=== PATIENT | female | born 1935 | race Caucasian/White ===

== ENCOUNTER 2018-03-09 11:45 | Emergency (ER) | payer OTHER ==
[2018-03-09] MEDS ORDERED: NITROGLYCERIN 0.4 MG/TAB SL ONE (13:15)
[2018-03-09] MEDS ORDERED: ASPIRIN 81 MG CHEWABLE TABLET ONE (13:15)
[2018-03-09 13:40] LABS: Potassium 4.7 mEq/L (3.6-5.0)
[2018-03-09 13:42] LABS: Absolute Monocytes 0.7 K/uL (0.1-1.3); Absolute Neutrophil 6.1 K/uL (1.8-8.0); Basophils % 0.4 % (0-1.3); Eosinophils % 2.1 % (0-4.4); Hematocrit 35.1 % (36.0-45.0); Lymphocytes % 45.8 % (15.3-44.8); MCH 28.9 pg (27.0-35.0); MCV 88.1 fL (80-100); Monocytes % 5.4 % (3.3-12.3); RBC Red Blood Cell Count 3.98 M/uL (3.86-4.86)
--- NOTE | 2018-03-09 13:45 | EKG ---
Test Date: 2018-03-09 Test Time: 12:12:15 [employer] Scorer: LEXUS MEASUREMENT RESULTS: Intervals: Rate: 59 [place]: 130 QRSD: 76 QT: 408 QTc: 403 [place]: P: -24 NJ: 130 QRS: 14 T: 57 INTERPRETIVE STATEMENTS: Sinus bradycardia Otherwise normal ECG Compared to ECG 09/11/2017 00:22:56 Sinus rhythm no longer present Electronically Signed On 03-09-18 13:44:58 CDT by Gaurang Sanchez
[2018-03-09 13:50] LABS: CKMB Creatine Kinase MB 1.3 ng/ml (0.3-4.0)
--- NOTE | 2018-03-09 14:31 | RAD REPORT ---
EXAM DESCRIPTION: RAD - Chest Single View - 03/09/2018 2:17 pm CLINICAL HISTORY: Chest pain, right shoulder pain COMPARISON: August 2017 TECHNIQUE: AP portable chest image was obtained 1401 hours . FINDINGS: No peripheral mass, consolidation or failure. Lung markings are mildly prominent but stabl e from the comparison. Heart and vasculature are normal. No measurable pleural effusion and no pneumo thorax. No gross bony abnormality seen. No acute aortic findings suspected. IMPRESSION: No acute cardiopulmonary process. No significant interval change.
[2018-03-09 15:01] LABS: Blood Morphology Comment NOT SEEN (NOT SEEN); Platelet Estimate ADEQ; Urine White Blood Cell Casts OK
--- NOTE | 2018-03-09 15:44 | ER ---
Nurse's Notes [facility] Name: Hari Hernandez Age: 82 yrs Sex: Female : 1935 Arrival Date: 03/09/2018 Time: 11:46 Bed 8 Private MD: Diagnosis: Chest pain, unspecified;Dehydration Presentation: 03/09 12:06 Presenting complaint: Patient states: "This morning I got a pain in my chest like I had lk1 been hit. I got some numbness in my right shoulder and down my arm, but that is gone now. I feel funny in my jaw like someone grabbed me and shook my head around. I have had a cough since yesterday.". Transition of care: patient was not received from another setting of care. Onset of symptoms was March 09, 2018 at 08:00. Care prior to arrival: None. 12:06 Method Of Arrival: Wheelchair lk1 12:06 Acuity: TOMMY 3 lk1 Triage Assessment: 12:08 General: Appears in no apparent distress. Behavior is calm, cooperative, appropriate lk1 for age. Pain: Complains of pain in mid-sternal area Pain radiates to jaw Pain currently is 4 out of 10 on a pain scale. Quality of pain is described as. Cardiovascular: Capillary refill is brisk Patient's skin is warm and dry. Historical: - Allergies: 12:08 PENICILLINS; lk1 12:08 mycins; lk1 - PMHx: 12:08 Colon Infection; Hypertension; UTI; lk1 - PSHx: 12:08 None; lk1 - Immunization history:: Adult Immunizations up to date. - Social history:: Smoking status: Patient/guardian denies using tobacco. - Family history:: not pertinent. - Hospitalizations: : No recent hospitalization is reported. Screenin:30 Abuse screen: Denies threats or abuse. Denies injuries from another. Nutritional sv screening: No deficits noted. Tuberculosis screening: No symptoms or risk factors identified. Fall Risk None identified. Assessment: 12:30 Also complains of no other symptoms. General: Appears in no apparent distress. sv comfortable, well developed, Behavior is calm, cooperative, appropriate for age. Pain: Complains of pain in anterior aspect of right upper chest Pain currently is 4 out of 10 on a pain scale. Quality of pain is described as sharp, Pain began suddenly, Is continuous. Neuro: Level of Consciousness is awake, alert, obeys commands, Oriented to person, place, time, situation, Pt has short term memory issues. Moves all extremities. Full function. Cardiovascular: Heart tones S1 S2 present Patient's skin is warm and dry. Pulses are 2+ in right radial artery and left radial artery Rhythm is sinus bradycardia. Respiratory: Respiratory effort is even, unlabored, Respiratory pattern is regular, symmetrical. GI: Abdomen is obese, Stools are reported to be normal. Derm: Skin is pink, warm \\T\\ dry. 13:22 Reassessment: Patient appears in no apparent distress at this time. No changes from sv previously documented assessment. Patient and/or family updated on plan of care and expected duration. Pain level reassessed. Patient is alert, oriented x 3, equal unlabored respirations, skin warm/dry/pink. 16:07 Reassessment: Patient appears in no apparent distress at this time. No changes from sv previously documented assessment. Patient and/or family updated on plan of care and expected duration. Pain level reassessed. Patient is alert, oriented x 3, equal unlabored respirations, skin warm/dry/pink. Vital Signs: 12:09 BP 213 / 75; Pulse 62; Resp 16; Temp 97.8(TE); Pulse Ox 96% on R/A; Weight 90.72 kg lk1 (R); Height 5 ft. 4 in. (162.56 cm) (R); Pain 4/10; 12:42 BP 184 / 75; Pulse 57 MON; Resp 14; Pulse Ox 97% on R/A; sv 13:21 BP 192 / 79; Pulse 62 MON; Resp 15; Pulse Ox 97% on R/A; sv 13:39 BP 164 / 94; Pulse 56; Resp 18; Pulse Ox 98% on 2 lpm NC; jb1 14:15 BP 149 / 61; Pulse 58 MON; Resp 13; Pulse Ox 100% on 2 lpm NC; sv 14:50 BP 143 / 72; Pulse 57; Resp 12; Pulse Ox 100% on 2 lpm NC; sv 15:44 BP 199 / 71; Pulse 62; Resp 16; Pulse Ox 99% on 2 lpm NC; jb1 12:09 Body Mass Index 34.33 (90.72 kg, 162.56 cm) lk 12:42 Sinus bradycardia sv 13:21 Sinus Rhythm sv 14:15 Sinus bradycardia sv ED Course: 11:46 Patient arrived in ED. as 12:08 Triage completed. lk1 12:10 Arm band placed on right wrist. lk1 12:18 Kaci Posadas RN is Primary Nurse. sv 12:30 Patient has correct armband on for positive identification. Placed in gown. Bed in low sv position. Call light in reach. Side rails up X 1. Adult w/ patient. secured entrance monitor on. Pulse ox on. NIBP on. Door closed. Head of bed elevated. 12:30 Patient maintains SpO2 saturation greater than 95% on room air. sv 12:41 Alonzo Landry MD is Attending Physician. rn 12:42 ED physician to see patient. sv 13:00 EKG done, by processing tech. reviewed by Alonzo Landry MD. vh 14:15 XRAY Chest (1 view) In Process Unspecified. EDMS 14:20 X-ray completed. Portable x-ray completed in exam room. Patient tolerated procedure jr1 well. 16:07 No provider procedures requiring assistance completed. IV discontinued, intact, sv bleeding controlled, No redness/swelling at site. Pressure dressing applied. Administered Medications: 13:21 Drug: Aspirin Chewable Tablet 324 mg Route: PO; sv 14:15 Follow up: Response: No adverse reaction sv 13:21 Drug: Nitroglycerin 0.4 mg Route: Sublingual; sv 14:15 Follow up: Response: No adverse reaction sv Outcome: 15:44 Discharge ordered by MD. rn 16:08 Discharged to home via wheelchair, with family. sv 16:08 Condition: stable 16:08 Discharge instructions given to patient, family, Instructed on discharge instructions, follow up and referral plans. Demonstrated understanding of instructions, follow-up care. 16:09 Patient left the ED. sv Signatures: Dispatcher [employer] EDMS Chang Costello jb1 Kaci Posadas, Xiao Holguin RN jr1 Berta Galaviz Roman, MD MD rn Harrell, Venessa Shannan Henry, RN RN rj1
--- NOTE | 2018-03-09 15:44 | EDPHYS ---
Physician Documentation [facility] Name: Hari Hernandez Age: 82 yrs Sex: Female : 1935 Arrival Date: 03/09/2018 Time: 11:46 Bed 8 Private MD: ED Physician Alonzo Landry HPI: 03/09 14:08 This 82 yrs old Female presents to ER via Wheelchair with complaints of Chest rn Tightness, Dizziness, Numbness. 14:08 The patient or guardian reports chest pain that is located primarily in the substernal rn area. Onset: acutely. The pain radiates to the right arm, the right shoulder, Associated signs and symptoms: Pertinent negatives: abdominal pain, cough, diaphoresis, lower extremity pain, lower extremity swelling, lightheadedness, nausea, near syncope, palpitations, recent travel, shortness of breath, syncope, vomiting. The chest pain is described as a heaviness. Duration: The patient or guardian reports a single episode, that is still ongoing. Severity of pain: At its worst the pain was moderate in the emergency department the pain has improved. The patient has not experienced similar symptoms in the past. Was at physical therapy, started to have chest pressure/heaviness, radiates to right shoulder and right jaw, no syncope, no hx of VT. Sent here by her physical therapist and nurse. . Historical: - Allergies: 12:08 PENICILLINS; lk1 12:08 mycins; lk1 - PMHx: 12:08 Colon Infection; Hypertension; UTI; lk1 - PSHx: 12:08 None; lk1 - Immunization history:: Adult Immunizations up to date. - Social history:: Smoking status: Patient/guardian denies using tobacco. - Family history:: not pertinent. - Hospitalizations: : No recent hospitalization is reported. ROS: 14:08 Constitutional: Negative for fever, chills, and weight loss, Eyes: Negative for injury, rn pain, redness, and discharge, Neck: Negative for injury, pain, and swelling, Cardiovascular: Negative for palpitations, and edema, Respiratory: Negative for shortness of breath, cough, wheezing, and pleuritic chest pain, Abdomen/GI: Negative for abdominal pain, vomiting, diarrhea, and constipation, Back: Negative for injury and pain, MS/Extremity: Negative for injury and deformity, Skin: Negative for injury, rash, and discoloration, Neuro: Negative for headache, weakness, and seizure. Exam: 14:08 Constitutional: This is a well developed, well nourished patient who is awake, alert, rn and in no acute distress. Head/Face: Normocephalic, atraumatic. Eyes: Pupils equal round and reactive to light, extra-ocular motions intact. Lids and lashes normal. Conjunctiva and sclera are non-icteric and not injected. Cornea within normal limits. Periorbital areas with no swelling, redness, or edema. Neck: Trachea midline, no thyromegaly or masses palpated, and no cervical lymphadenopathy. Supple, full range of motion without nuchal rigidity, or vertebral point tenderness. No Meningismus. Cardiovascular: Regular rate and rhythm with a normal S1 and S2. No gallops, murmurs, or rubs. Normal PMI, no JVD. No pulse deficits. Respiratory: Lungs have equal breath sounds bilaterally, clear to auscultation and percussion. No rales, rhonchi or wheezes noted. No increased work of breathing, no retractions or nasal flaring. Abdomen/GI: Soft, non-tender, with normal bowel sounds. No distension or tympany. No guarding or rebound. No evidence of tenderness throughout. MS/ Extremity: Pulses equal, no cyanosis. Neurovascular intact. Full, normal range of motion. Equal circumference. Neuro: Awake and alert, GCS 15, oriented to person, place, and situation. Cranial nerves II-XII grossly intact. Motor strength 5/5 in all extremities. Sensory grossly intact. Vital Signs: 12:09 BP 213 / 75; Pulse 62; Resp 16; Temp 97.8(TE); Pulse Ox 96% on R/A; Weight 90.72 kg lk1 (R); Height 5 ft. 4 in. (162.56 cm) (R); Pain 4/10; 12:42 BP 184 / 75; Pulse 57 MON; Resp 14; Pulse Ox 97% on R/A; sv 13:21 BP 192 / 79; Pulse 62 MON; Resp 15; Pulse Ox 97% on R/A; sv 13:39 BP 164 / 94; Pulse 56; Resp 18; Pulse Ox 98% on 2 lpm NC; jb1 14:15 BP 149 / 61; Pulse 58 MON; Resp 13; Pulse Ox 100% on 2 lpm NC; sv 14:50 BP 143 / 72; Pulse 57; Resp 12; Pulse Ox 100% on 2 lpm NC; sv 15:44 BP 199 / 71; Pulse 62; Resp 16; Pulse Ox 99% on 2 lpm NC; jb1 12:09 Body Mass Index 34.33 (90.72 kg, 162.56 cm) lk1 12:42 Sinus bradycardia sv 13:21 Sinus Rhythm sv 14:15 Sinus bradycardia sv MDM: 12:41 Patient medically screened. rn 15:39 Differential diagnosis: acute myocardial infarction, acute pericarditis, anxiety, rn coronary artery disease chest wall pain, costochondritis, esophagitis, gastritis, gastroesophageal reflux disease (GERD), pleurisy, pneumonia, pneumothorax, stable angina. The patient was given aspirin in the Emergency Department. Data reviewed: vital signs, nurses notes, lab test result(s), EKG, radiologic studies, plain films, and as a result, I will admit patient. Counseling: I had a detailed discussion with the patient and/or guardian regarding: the historical points, exam findings, and any diagnostic results supporting the discharge/admit diagnosis, lab results, radiology results, the need for outpatient follow up, to return to the emergency department if symptoms worsen or persist or if there are any questions or concerns that arise at home. Refusal of service: The patient/guardian displays adequate decision making capability and despite a detailed discussion of alternatives, benefits, risks, and consequences refuses: Admission to the hospital for further work-up and treatment. Special discussion:. ED course: Offered observation to hospital for cardiac w/u, son and patient refuse admission, son states that doesn't even want her to take BP meds so would like to take her home, risks explained, state they are comfortable with that, states chest pain free, states hungry, son blaming this on acid reflux, which may be the case but not sure otherwise. . 03/09 12:49 Order name: Basic Metabolic Panel; Complete Time: 14:05 rn 03/09 12:49 Order name: CBC with Diff; Complete Time: 15:02 rn 03/09 12:49 Order name: Ckmb; Complete Time: 14: rn 03/09 12:49 Order name: CPK; Complete Time: 14: rn 03/09 12:49 Order name: Troponin (emerg Dept Use Only); Complete Time: 14:05 rn 03/09 13:48 Order name: CBC Smear Scan; Complete Time: 15:02 EDID 03/09 12:42 Order name: EKG; Complete Time: 12:42 sv 03/09 12:42 Order name: EKG - Nurse/Tech; Complete Time: 12:42 sv 03/09 12:49 Order name: XRAY Chest (1 view); Complete Time: 14:32 rn 03/09 12:49 Order name: Cardiac monitoring; Complete Time: 13:08 rn 03/09 12:49 Order name: IV Saline Lock; Complete Time: 13:08 rn 03/09 12:49 Order name: Labs collected and sent; Complete Time: 13:08 rn 03/09 12:49 Order name: O2 Per Protocol; Complete Time: 13:08 rn 03/09 12:49 Order name: O2 Sat Monitoring; Complete Time: 13:08 rn Administered Medications: 13:21 Drug: Aspirin Chewable Tablet 324 mg Route: PO; sv 14:15 Follow up: Response: No adverse reaction sv 13:21 Drug: Nitroglycerin 0.4 mg Route: Sublingual; sv 14:15 Follow up: Response: No adverse reaction sv Disposition: 03/09/18 15:44 Discharged to Home. Impression: Chest pain, unspecified, Dehydration. - Condition is Stable. - Discharge Instructions: Nonspecific Chest Pain, Dehydration, Adult. - Medication Reconciliation Form, Thank You Letter, Antibiotic Education, Prescription Opioid Use form. - Follow up: Private Physician; When: As needed; Reason: Recheck today's complaints, Re-evaluation by your physician. - Problem is new. - Symptoms have improved. Signatures: Dispatcher [employer] Kaci Esquivel, RN RN Alonzo Perales MD MD rn Kluge, Leah, RN RN lk1
== END 2018-03-09 16:09 | disposition home or self-care (01) ==
LOC: ER 11:45
DX: E86.0 Dehydration (principal); I10 Essential (primary) hypertension; Z88.0 Allergy status to penicillin; Z88.3 Allergy status to other anti-infective agents
CPT/HCPCS: 36415; 71045; 80048; 82550; 82553; 84484; 85025; 93005; 99285

== ENCOUNTER 2019-06-01 19:54 | Emergency (ER) | payer OTHER ==
[2019-06-01 20:36] LABS: Absolute Lymphocytes (CBC) 9.3 K/uL (0.7-4.9); Basophils % 0.3 % (0-1.3); Hematocrit 35.2 % (36.0-45.0); Lymphocytes % 51.1 % (15.3-44.8); MPV 10.1 fL (7.6-11.3); Monocytes % 3.8 % (3.3-12.3); RBC Red Blood Cell Count 4.13 M/uL (3.86-4.86)
[2019-06-01] MEDS ORDERED: NA CHLORIDE 0.9% 500 ML ONE (20:39)
--- NOTE | 2019-06-01 20:49 | RAD REPORT ---
EXAM DESCRIPTION: CT - Head Brain Wo Cont - 06/01/2019 8:32 pm CLINICAL HISTORY: Dizziness, syncope COMPARISON: None. TECHNIQUE: Axial 5 mm thick images of the head were obtained without IV contrast. All CT scans are performed using dose optimization technique as appropriate and may include automated exposure control or mA/KV adjustment according to patient size. FINDINGS: No intracranial hemorrhage, mass, edema or shift of mid-line structures. No acute infarcti on changes seen. Mild atrophy and moderate chronic ischemic changes are present. Ventricles are in pr oportion to volume loss. Arterial and physiologic calcifications are present. Mastoid air cells and visualized portions of the paranasal sinuses are clear. No acute bony findings. IMPRESSION: No hemorrhage or other acute intracranial finding. Mild atrophy and moderate chronic ischemic changes are present.
--- NOTE | 2019-06-01 20:50 | RAD REPORT ---
EXAM DESCRIPTION: RAD - Chest Single View - 06/01/2019 8:36 pm CLINICAL HISTORY: Dyspnea, chest pain, shortness of breath COMPARISON: January 2018 TECHNIQUE: AP portable chest image was obtained 2021 . FINDINGS: Lung volumes are low. No focal lung parenchymal process. No failure or volume overload. He art and vasculature are normal. No measurable pleural effusion and no pneumothorax. No acute bony abn ormality seen. No acute aortic findings suspected. IMPRESSION: No acute cardiopulmonary process. No suspicious change from comparison.
[2019-06-01 21:00] LABS: BUN Blood Urea Nitrogen 19 mg/dL (7-18); Bicarbonate 22 mmol/L (21-32); Glucose Level 151 mg/dL (74-106); NT PRO-BNP 250 pg/mL (<450); Sodium Level 141 mmol/L (136-145); Troponin (Emerg Dept Use Only) < 0.02 ng/mL (0.0-0.045)
[2019-06-01 21:42] LABS: Urine Blood NEGATIVE (NEG); Urine Glucose NEGATIVE (NEG); Urine Protein 1+ (NEG); Urine pH 5.5 (5.0-7.0)
[2019-06-01 21:43] LABS: Blood Morphology Comment NOT SEEN (NOT SEEN); Platelet Estimate ADEQ; Urine White Blood Cell Casts OK
[2019-06-01 22:10] LABS: Urine Bacteria 20-50 /HPF (<20); Urine Culture Reflex Order REFLEXED; Urine RBC <5 /HPF (NONE SEEN)
--- NOTE | 2019-06-01 22:29 | EDPHYS ---
Physician Documentation [facility] Name: Hari Hernandez Age: 84 yrs Sex: Female : 1935 Arrival Date: 06/01/2019 Time: 20:01 Bed 4 Private MD: ED Physician Alonzo Landry HPI: 06/01 20:20 This 84 yrs old Female presents to ER via EMS with complaints of sob, chest rn pain. 20:20 The patient has shortness of breath at rest. Onset: The symptoms/episode began/occurred rn just prior to arrival. Duration: The symptoms are continuous. The patient's shortness of breath is aggravated by nothing, is alleviated by nothing. Severity of symptoms: At their worst the symptoms were moderate in the emergency department the symptoms have improved. The patient has experienced similar episodes in the past. Reports sob, began at rest while playing dominos, felt fine prior, son reports episodes of anxiety but patient reports feels a little different. No cough. Reports mild chest discomfort. No abd pain/vomiting/diarrhea. Reports assoc dizziness but son states able to walk with her walker. . 20:20 Patient reports improvement without any intervention.. rn Historical: - Allergies: 20:12 "unknown mycin"; fc 20:12 mycins; fc 20:12 PENICILLINS; fc 20:12 Tetanus Vaccines \\T\\ Toxoid; fc - Home Meds: 20:12 Symbicort 160-4.5 mcg/actuation inhalation HFAA 2 puffs 2 times per day [Active]; fc omeprazole 40 mg Oral cpDR 1 cap once daily [Active]; sertraline 50 mg oral tab 1 tab once daily [Active]; amlodipine 5 mg tab 1 tab once daily [Active]; - PMHx: 20:12 Colon Infection; UTI; Hypertension; Bronchitis; GERD; Depression; fc - PSHx: 20:12 Cholecystectomy; Appendectomy; Knee surgery; hip surg; Hysterectomy; abscess; fc - Immunization history:: Last tetanus immunization: unknown. - Social history:: Smoking status: Patient/guardian denies using tobacco, Patient/guardian denies using alcohol, street drugs. - Ebola Screening: : Patient negative for fever greater than or equal to 101.5 degrees Fahrenheit, and additional compatible Ebola Virus Disease symptoms Patient denies exposure to infectious person Patient denies travel to an Ebola-affected area in the 21 days before illness onset. - Family history:: not pertinent. - Hospitalizations: : No recent hospitalization is reported. ROS: 20:20 Constitutional: Negative for fever, chills, and weight loss, Eyes: Negative for injury, rn pain, redness, and discharge, Neck: Negative for injury, pain, and swelling, Cardiovascular: Negative for palpitations, and edema, Respiratory: Negative for cough, wheezing, and pleuritic chest pain, Abdomen/GI: Negative for abdominal pain, nausea, vomiting, diarrhea, and constipation, MS/Extremity: Negative for injury and deformity, Skin: Negative for injury, rash, and discoloration, Neuro: Negative for headache, numbness, tingling, and seizure. Exam: 20:20 Constitutional: This is a well developed, well nourished patient who is awake, alert, rn and in no acute distress. Head/Face: Normocephalic, atraumatic. Eyes: Pupils equal round and reactive to light, extra-ocular motions intact. Lids and lashes normal. Conjunctiva and sclera are non-icteric and not injected. Cornea within normal limits. Periorbital areas with no swelling, redness, or edema. ENT: MMM Cardiovascular: Regular rate and rhythm. No pulse deficits. Respiratory: Lungs have equal breath sounds bilaterally, clear to auscultation. No increased work of breathing, no retractions or nasal flaring. Abdomen/GI: soft, non-tender MS/ Extremity: Pulses equal, no cyanosis. Neurovascular intact. ROM at baseline (chronic RLE issues after hip replacement) Neuro: Awake and alert, GCS 15, oriented to person, place, time, and situation. Cranial nerves II-XII grossly intact. Motor strength 5/5 in all extremities. Sensory grossly intact. Vital Signs: 19:55 BP 176 / 65; Pulse 90; Resp 16; Temp 98.6(O); Pulse Ox 97% on R/A; Weight 90.72 kg (R); fc Height 5 ft. 4 in. (162.56 cm) (R); Pain 4/10; 21:35 BP 175 / 72; Pulse 71; Resp 20; Pulse Ox 96% on R/A; tl2 22:45 BP 172 / 76; Pulse 76; Resp 18; Temp 98.6; Pulse Ox 97% on R/A; tl2 19:55 Body Mass Index 34.33 (90.72 kg, 162.56 cm) MDM: 20:07 Patient medically screened. rn 21:35 ED course: Pt back to baseline. Denies sob. Son reports she is constantly sob, with rn minimal exertion, has been attributed in past to out of shape. 18K WBC, predominantly lymphs, afebrile, clear cxr, will send urine for micro, no abd tenderness or complaints on reeval. . 22:27 Differential diagnosis: Anemia Myocardial Infarction pneumonia, Pneumothorax rn Psychogenic pulmonary edema. Data reviewed: vital signs, nurses notes, lab test result(s), radiologic studies, CT scan, plain films, and as a result, I will discharge patient. Counseling: I had a detailed discussion with the patient and/or guardian regarding: the historical points, exam findings, and any diagnostic results supporting the discharge/admit diagnosis, lab results, radiology results, the need for outpatient follow up, to return to the emergency department if symptoms worsen or persist or if there are any questions or concerns that arise at home. Response to treatment: the patient's symptoms have resolved after treatment, the patient's condition has returned to base line, and as a result, I will discharge patient. 22:27 ED course: Questionable UTI, 18K WBC, dizziness and no other source, will treat and rn given return precautions, patient and son requesting to leave soon.. 06/01 20:17 Order name: CBC with Diff; Complete Time: 22:26 rn 06/01 20:17 Order name: Basic Metabolic Panel; Complete Time: 21:12 rn 06/01 20:17 Order name: PROBNP; Complete Time: 21:12 rn 06/01 20:17 Order name: Troponin (emerg Dept Use Only); Complete Time: 21:12 rn 06/01 21:29 Order name: Urine Microscopic Only; Complete Time: 22:26 fc 06/01 21:36 Order name: Urine Dipstick--Ancillary (enter results); Complete Time: 22:26 mw2 06/01 20:17 Order name: IV Start; Complete Time: 20:20 rn 06/01 20:17 Order name: XRAY Chest (1 view); Complete Time: 20:54 rn 06/01 20:17 Order name: CT Head Brain wo Cont; Complete Time: 20:54 rn 06/01 20:17 Order name: Urine Dipstick-Ancillary (obtain specimen); Complete Time: 21:36 rn 06/01 21:44 Order name: CBC Smear Scan; Complete Time: 22:26 EDAZ 06/01 22:12 Order name: Urine Culture EDAZ Administered Medications: 20:27 Drug: NS 0.9% 500 ml Route: IV; Rate: bolus; Site: left antecubital; 22:47 Follow up: IV Status: Completed infusion; IV Intake: 500ml tl2 Disposition: 06/01/19 22:28 Discharged to Home. Impression: Dehydration, Dizziness and giddiness, Dyspnea, unspecified, Urinary tract infection, site not specified. - Condition is Stable. - Discharge Instructions: Dehydration, Adult, Dizziness, Shortness of Breath, Urinary Tract Infection, Adult. - Prescriptions for Macrobid 100 mg Oral Capsule - take 1 capsule by ORAL route every 12 hours for 7 days; 14 capsule. - Medication Reconciliation Form, Thank You Letter, Antibiotic Education, Prescription Opioid Use form. - Follow up: Private Physician; When: As needed; Reason: Recheck today's complaints, Re-evaluation by your physician. - Problem is new. - Symptoms have improved. Signatures: Dispatcher [employer] [facility] Sydni Schreiber RN RN fc Ballard, Brenda, RN RN bb Nieto, Roman, MD MD rn Knox, Taylor, RN RN tl2 Corrections: (The following items were deleted from the chart) 22:47 22:28 06/01/2019 22:28 Discharged to Home. Impression: Dehydration; Dizziness and tl2 giddiness; Dyspnea, unspecified; Urinary tract infection, site not specified. Condition is Stable. Forms are Medication Reconciliation Form, Thank You Letter, Antibiotic Education, Prescription Opioid Use. Follow up: Private Physician; When: As needed; Reason: Recheck today's complaints, Re-evaluation by your physician. Problem is new. Symptoms have improved. rn
--- NOTE | 2019-06-01 22:29 | ER ---
Nurse's Notes [facility] Name: Hari Hernandez Age: 84 yrs Sex: Female : 1935 Arrival Date: 06/01/2019 Time: 20:01 Bed 4 Private MD: Diagnosis: Dehydration;Dizziness and giddiness;Dyspnea, unspecified;Urinary tract infection, site not specified Presentation: 06/01 19:55 Presenting complaint: Patient states: that she was playing dominos with the other residents at [facility] and then started to have SOB. States that this has been happening every evening x 2 and it then gets better. Was worse tonight. Chest is sore when she presses on it. Transition of care: patient was not received from another setting of care. Onset of symptoms was June 01, 2019 at 19:20. Risk Assessment: Do you want to hurt yourself or someone else? Patient reports no desire to harm self or others. Initial Sepsis Screen: Does the patient meet any 2 criteria? No. Patient's initial sepsis screen is negative. Does the patient have a suspected source of infection? No. Patient's initial sepsis screen is negative. Care prior to arrival: IV initiated. 20 GA, in the left antecubital area. 19:55 Method Of Arrival: EMS: [facility] 19:55 Acuity: TOMMY 3 Triage Assessment: 20:27 General: Appears. bb Historical: - Allergies: 20:12 "unknown mycin"; 20:12 mycins; 20:12 PENICILLINS; 20:12 Tetanus Vaccines \\T\\ Toxoid; fc - Home Meds: 20:12 Symbicort 160-4.5 mcg/actuation inhalation HFAA 2 puffs 2 times per day [Active]; fc omeprazole 40 mg Oral cpDR 1 cap once daily [Active]; sertraline 50 mg oral tab 1 tab once daily [Active]; amlodipine 5 mg tab 1 tab once daily [Active]; - PMHx: 20:12 Colon Infection; UTI; Hypertension; Bronchitis; GERD; Depression; fc - PSHx: 20:12 Cholecystectomy; Appendectomy; Knee surgery; hip surg; Hysterectomy; abscess; fc - Immunization history:: Last tetanus immunization: unknown. - Social history:: Smoking status: Patient/guardian denies using tobacco, Patient/guardian denies using alcohol, street drugs. - Ebola Screening: : Patient negative for fever greater than or equal to 101.5 degrees Fahrenheit, and additional compatible Ebola Virus Disease symptoms Patient denies exposure to infectious person Patient denies travel to an Ebola-affected area in the 21 days before illness onset. - Family history:: not pertinent. - Hospitalizations: : No recent hospitalization is reported. Screenin:55 Abuse screen: Denies threats or abuse. Nutritional screening: No deficits noted. fc Tuberculosis screening: No symptoms or risk factors identified. Fall Risk None identified. Assessment: 20:29 General: Appears in no apparent distress. uncomfortable, Behavior is cooperative, tl2 appropriate for age, anxious. Pain: Complains of pain in epigastric, right mid back Pain does not radiate. Pain currently is 4 out of 10 on a pain scale. Neuro: Level of Consciousness is awake, alert, obeys commands, Oriented to person, place, time, situation, Speech is normal, Facial symmetry appears normal. Cardiovascular: Patient's skin is warm and dry. Rhythm is sinus rhythm Chest pain is described as mild, quality is sharp, is located in epigastric area. Respiratory: Reports shortness of breath sudden onset shortness of breath and feeling like she was going to pass out Airway is patent Respiratory effort is even, unlabored, Respiratory pattern is regular, symmetrical. GI: No signs and/or symptoms were reported involving the gastrointestinal system. : No signs and/or symptoms were reported regarding the genitourinary system. Derm: Skin is pink, warm \\T\\ dry. 21:35 Reassessment: Patient appears in no apparent distress at this time. Patient and/or tl2 family updated on plan of care and expected duration. Pain level reassessed. Patient is alert, oriented x 3, equal unlabored respirations, skin warm/dry/pink. Awaiting urine micro results. 22:45 Reassessment: Patient appears in no apparent distress at this time. Patient and/or tl2 family updated on plan of care and expected duration. Pain level reassessed. Patient is alert, oriented x 3, equal unlabored respirations, skin warm/dry/pink. pt verbalized understanding of discharge instructions, need for follow up and prescription usage. Vital Signs: 19:55 BP 176 / 65; Pulse 90; Resp 16; Temp 98.6(O); Pulse Ox 97% on R/A; Weight 90.72 kg (R); fc Height 5 ft. 4 in. (162.56 cm) (R); Pain 4/10; 21:35 BP 175 / 72; Pulse 71; Resp 20; Pulse Ox 96% on R/A; tl2 22:45 BP 172 / 76; Pulse 76; Resp 18; Temp 98.6; Pulse Ox 97% on R/A; tl2 19:55 Body Mass Index 34.33 (90.72 kg, 162.56 cm) ED Course: 19:55 Maintain EMS IV. Dressing intact. Good blood return noted. Site clean \\T\\ dry. Gauge \\T\\ fc site: 20 gauge to left a/c. 19:55 Arm band placed on Patient placed in an exam room, on a stretcher. fc 19:55 Patient has correct armband on for positive identification. Placed in gown. Bed in low fc position. Call light in reach. Side rails up X2. school lunch monitor on. Pulse ox on. NIBP on. 20:00 Initial lab(s) drawn, by me, sent to lab. bb 20:01 Patient arrived in ED. ds1 20:05 EKG done, by ED staff. tl2 20:06 Triage completed. fc 20:07 Alonzo Landry MD is Attending Physician. rn 20:23 Joann Morris RN is Primary Nurse. tl2 20:33 CT Head Brain wo Cont In Process Unspecified. EDMS 20:37 XRAY Chest (1 view) In Process Unspecified. EDMS 21:35 Assisted to bathroom. tl2 22:45 No provider procedures requiring assistance completed. IV discontinued, intact, tl2 bleeding controlled, No redness/swelling at site. Pressure dressing applied. Administered Medications: 20:27 Drug: NS 0.9% 500 ml Route: IV; Rate: bolus; Site: left antecubital; bb 22:47 Follow up: IV Status: Completed infusion; IV Intake: 500ml tl2 Intake: 22:47 IV: 500ml; Total: 500ml. tl2 Outcome: 22:28 Discharge ordered by . rn 22:45 Discharged to home via wheelchair, with family. tl2 22:45 Condition: stable 22:45 Discharge instructions given to patient, family, Instructed on discharge instructions, follow up and referral plans. medication usage, Demonstrated understanding of instructions, follow-up care, medications, Prescriptions given X 1. 22:47 Patient left the ED. tl2 Signatures: Dispatcher [employer] EDMS Sydni Schreiber RN RN Jolene Nuñez ds1 Tesha Jesus RN RN bb Alonzo Landry MD MD rn Knox, Taylor, RN RN tl2
--- NOTE | 2019-06-02 09:56 | EKG ---
Test Date: 2019-06-01 Test Time: 20:02:58 Washer [place]: DINESH MEASUREMENT RESULTS: Intervals: Rate: 81 VA: 166 QRSD: 78 QT: 362 QTc: 420 [place]: P: 26 VA: 166 QRS: 10 T: 53 INTERPRETIVE STATEMENTS: Normal sinus rhythm Normal ECG Compared to ECG 03/09/2018 12:12:15 Sinus bradycardia no longer present Electronically Signed On 06-02-19 09:55:46 CDT by Gaurang Sanchez
== END 2019-06-01 22:47 | disposition home or self-care (01) ==
LOC: ER 19:54
DX: N39.0 Urinary tract infection, site not specified (principal); R06.00 Dyspnea, unspecified; R42 Dizziness and giddiness; E86.0 Dehydration; J40 Bronchitis, not specified as acute or chronic; K21.9 Gastro-esophageal reflux disease without esophagitis; F32.9 Major depressive disorder, single episode, unspecified; Z88.0 Allergy status to penicillin; Z88.3 Allergy status to other anti-infective agents; Z88.7 Allergy status to serum and vaccine
CPT/HCPCS: 36415; 70450; 71045; 80048; 81003; 81015; 83880; 84484; 85025; 87086; 87088; 93005; 96360; 96361; 99285

== ENCOUNTER 2020-04-01 08:59 | Emergency (ER) | payer OTHER ==
[2020-04-01] MEDS ORDERED: ONDANSETRON 4 MG/2 ML VIAL ONE (09:39)
[2020-04-01] MEDS ORDERED: KETOROLAC 30 MG/ML INJ ONE (09:39)
[2020-04-01] MEDS ORDERED: MORPHINE 4 MG/ML SYR ONE ×2 (09:39→11:16)
[2020-04-01 09:45] LABS: Absolute Lymphocytes (CBC) 8.7 K/uL (0.7-4.9); Basophils % 0.4 % (0-1.3); Hematocrit 33.4 % (36.0-45.0); Lymphocytes % 45.5 % (15.3-44.8); MPV 9.9 fL (7.6-11.3); RBC Red Blood Cell Count 4.13 M/uL (3.86-4.86)
[2020-04-01 10:05] LABS: Albumin 3.7 g/dL (3.4-5.0); Bilirubin Total 0.5 mg/dL (0.2-1.0); Potassium 3.9 mmol/L (3.5-5.1); Protein, Total 7.6 g/dL (6.4-8.2)
--- NOTE | 2020-04-01 10:48 | RAD REPORT ---
EXAM DESCRIPTION: RAD - Chest Single View - 04/01/2020 10:26 am CLINICAL HISTORY: Chest pain;Blunt chest trauma COMPARISON: Portable May 2019 TECHNIQUE: AP portable chest image was obtained 04/01/2020 10:26 am . FINDINGS: Very low lung volumes limit examination. Large body habitus also limits assessment. No per ipheral mass or consolidation. No significant failure or volume overload. Heart size is upper normal, accentuated by lordotic positioning body habitus and portable technique. No measurable pleural effus ion and no pneumothorax. No acute bony abnormality seen. No acute aortic findings suspected. IMPRESSION: Exam is significantly limited but no acute cardiopulmonary finding confirmed.
--- NOTE | 2020-04-01 10:52 | RAD REPORT ---
EXAM DESCRIPTION: RAD - Shoulder Left 2 View - 04/01/2020 10:26 am CLINICAL HISTORY: PAIN COMPARISON: Chest Single View dated 06/01/2019; Chest Single View dated 03/09/2018; Thorax Wo Con dated 04/01/2020 TECHNIQUE: Internal and external rotation views of the left shoulder were obtained. FINDINGS: Significant deformity of the proximal left humerus is noted. Review of old imaging shows r emodeling from a prior fracture. Positioning on this examination is limited. The left shoulder was no t adequately imaged on the CT chest also performed on this date. There is no dislocation. Re- fractur e of the proximal left humerus cannot be confirmed. No pathologic changes. Prominent AC joint degener ative changes seen. IMPRESSION: Left shoulder imaging is limited by positioning and technique. Patient has history of ol d left proximal humerus fracture. Based on the current imaging, re- fracture of the proximal left humerus cannot be confirmed. There is no dislocation. Repeat imaging of the left shoulder could be performed if there are continued symptoms concerning for fracture. If the cannot properly positioned for left shoulder plain film imaging, thin section CT im aging could be performed.
--- NOTE | 2020-04-01 10:53 | RAD REPORT ---
EXAM DESCRIPTION: RAD - Pelvis - 04/01/2020 10:26 am CLINICAL HISTORY: BLUNT TRAUMA, fall, pain COMPARISON: No comparisons TECHNIQUE: AP imaging of the pelvis was obtained. FINDINGS: Prominent lower lumbar degenerative change present only partially imaged. SI joint degenerative changes are present. No gross deformity of the sacral ala. However, detail is l imited by body habitus and overlying bowel. No fracture of the pelvis identified. No proximal femur fracture seen. Hardware is in place on the ri ght from prior repair. IMPRESSION: No fracture or other acute finding identifiable.
--- NOTE | 2020-04-01 10:57 | RAD REPORT ---
EXAM DESCRIPTION: CT - Thorax Wo Con - 04/01/2020 10:46 am CLINICAL HISTORY: Deformity;Pain, fall, chest injury COMPARISON: Thorax Wo Con dated 09/11/2017 TECHNIQUE: Axial 5 mm thick images of the chest were obtained without IV contrast. All CT scans are performed using dose optimization technique as appropriate and may include automated exposure control or mA/KV adjustment according to patient size. FINDINGS: No acute mass or infiltrate identified. Posterior lung field atelectasis changes are prese nt. No endobronchial lesion. No pleural thickening or pleural effusion. No pneumothorax. No abnormal mediastinal or hilar masses or lymphadenopathy seen. No gross aortic or pulmonary artery finding suspected. Assessment is limited in the absence of IV contrast. Moderate-size hiatal hernia present. No chest wall mass or abnormal axillary lymphadenopathy. No displaced rib fractures seen. No nondisplaced rib fractures confirmed. Patient has a known of old proximal left humerus fracture. The left humerus and shoulder joint are not adequately imaged on this study to allow all accurate assessment. IMPRESSION: Negative non-contrast CT chest examination for acute finding Left shoulder not adequately imaged on this study for assessment of the proximal left humerus.
--- NOTE | 2020-04-01 11:14 | EDPHYS ---
Physician Documentation [facility] Name: Hari Hernandez Age: 84 yrs Sex: Female : 1935 Arrival Date: 04/01/2020 Time: 09:04 Bed 2 Private MD: ED Physician Oscar Cee HPI: 04/01 09:18 This 84 yrs old Female presents to ER via EMS with complaints of Fall Injury. jl 09:18 Details of fall: The patient fell from an upright position, while standing. Onset: The jl symptoms/episode began/occurred just prior to arrival. Associated injuries: The patient sustained injury to the chest, contusion, pain with breathing, pain with movement, tenderness. Severity of symptoms: At their worst the symptoms were moderate, severe, in the emergency department the symptoms are unchanged. The patient has not experienced similar symptoms in the past. Historical: - Allergies: 09:10 "unknown mycin"; em 09:10 mycins; em 09:10 PENICILLINS; em 09:10 Tetanus Vaccines \\T\\ Toxoid; em - Home Meds: 09:10 amlodipine 5 mg tab 1 tab once daily [Active]; sertraline 50 mg Oral tab 1 tab once em daily [Active]; - PMHx: 09:10 Bronchitis; Colon Infection; Depression; GERD; Hypertension; UTI; em - PSHx: 09:10 Cholecystectomy; Knee surgery; Appendectomy; hip surg; abscess; Hysterectomy; em - Immunization history:: Adult Immunizations not up to date. - Social history:: Smoking status: Patient denies any tobacco usage or history of. ROS: 09:19 Constitutional: Negative for fever, chills, and weight loss, Eyes: Negative for injury, jl pain, redness, and discharge, ENT: Negative for injury, pain, and discharge, Neck: Negative for injury, pain, and swelling, Cardiovascular: Negative for chest pain, palpitations, and edema, Abdomen/GI: Negative for abdominal pain, nausea, vomiting, diarrhea, and constipation, Back: Negative for injury and pain, : Negative for injury, bleeding, discharge, and swelling, MS/Extremity: Negative for injury and deformity, Skin: Negative for injury, rash, and discoloration, Neuro: Negative for headache, weakness, numbness, tingling, and seizure, Psych: Negative for depression, anxiety, suicide ideation, homicidal ideation, and hallucinations, Allergy/Immunology: Negative for hives, rash, and allergies, Endocrine: Negative for neck swelling, polydipsia, polyuria, polyphagia, and marked weight changes, Hematologic/Lymphatic: Negative for swollen nodes, abnormal bleeding, and unusual bruising. 09:19 Respiratory: Positive for shortness of breath, at rest. leeft chest wall pain, no crepitus. Exam: 09:19 Constitutional: This is a well developed, well nourished patient who is awake, alert, jl and in no acute distress. Head/Face: Normocephalic, atraumatic. Eyes: Pupils equal round and reactive to light, extra-ocular motions intact. Lids and lashes normal. Conjunctiva and sclera are non-icteric and not injected. Cornea within normal limits. Periorbital areas with no swelling, redness, or edema. ENT: Nares patent. No nasal discharge, no septal abnormalities noted. Tympanic membranes are normal and external auditory canals are clear. Oropharynx with no redness, swelling, or masses, exudates, or evidence of obstruction, uvula midline. Mucous membranes moist. Cardiovascular: Regular rate and rhythm with a normal S1 and S2. No gallops, murmurs, or rubs. Normal PMI, no JVD. No pulse deficits. Respiratory: Lungs have equal breath sounds bilaterally, clear to auscultation and percussion. No rales, rhonchi or wheezes noted. No increased work of breathing, no retractions or nasal flaring. Abdomen/GI: Soft, non-tender, with normal bowel sounds. No distension or tympany. No guarding or rebound. No evidence of tenderness throughout. Back: No spinal tenderness. No costovertebral tenderness. Full range of motion. Female : Normal external genitalia. Skin: Warm, dry with normal turgor. Normal color with no rashes, no lesions, and no evidence of cellulitis. Neuro: Awake and alert, GCS 15, oriented to person, place, time, and situation. Cranial nerves II-XII grossly intact. Motor strength 5/5 in all extremities. Sensory grossly intact. Cerebellar exam normal. Normal gait. Psych: Awake, alert, with orientation to person, place and time. Behavior, mood, and affect are within normal limits. 09:19 Neck: External neck: is normal, C-spine: appears grossly normal, no acute changes, Thyroid: appears normal, Trachea: is midline with no obvious abnormalities, no acute changes, ROM/movement: is normal, no acute changes, Lymph nodes: no appreciated lymphadenopathy. 09:19 Chest/axilla: Inspection: normal, no acute changes, Palpation: tenderness, that is moderate, of the left clavicle, anterior aspect of left upper chest, left lateral posterior chest, left lateral anterior chest and left breast, Axilla: are normal, Breasts: are normal, Lymph nodes: lymphadenopathy is not appreciated. 11:54 ENT: jl 11:54 ECG was reviewed by the Attending Physician. Vital Signs: 09:05 BP 187 / 68; Pulse 58; Resp 18; Temp 98.8(O); Pulse Ox 98% on R/A; Weight 89.81 kg; em Height 5 ft. 4 in. (162.56 cm); Pain 8/10; 10:00 BP 143 / 50; Pulse 49; Resp 18; Pulse Ox 99% on R/A; em 11:49 BP 123 / 49; Pulse 51; Resp 19; Pulse Ox 97% on R/A; Pain 7/10; em 13:44 BP 146 / 59; Pulse 57; Resp 16; Pulse Ox 96% on R/A; em 09:05 Body Mass Index 33.99 (89.81 kg, 162.56 cm) em MDM: 09:05 Patient medically screened. jl 09:20 Data reviewed: vital signs, nurses notes, lab test result(s), radiologic studies, CT jl scan, plain films. 09:21 Differential diagnosis: contusion, fracture. Differential diagnosis: Blunt Chest Trauma jl Chest Wall Contusion Hemopericardium Pleural Effusion Pneumomediastinum Pneumothorax Pulmonary Contusion Rib Fracture Ruptured Hemidiaphragm. Data interpreted: classroom monitor: not applicable for this patient encounter. Pulse oximetry: on room air is 98 %. Test interpretation: by ED physician or midlevel provider: plain radiologic studies. Counseling: I had a detailed discussion with the patient and/or guardian regarding: the historical points, exam findings, and any diagnostic results supporting the discharge/admit diagnosis, lab results, radiology results. 11:11 Response to treatment: the patient's symptoms have mildly improved after treatment. ED jl course: hx of crf, ct neg for acute fx, ptx, pulmonary contusion, will dc and have on pain meds and incentive spirometer. 04/01 09:18 Order name: CBC with Diff; Complete Time: 10:24 [facility] 04/01 09:18 Order name: Comprehensive Metabolic Panel; Complete Time: 10:24 [facility] 04/01 09:18 Order name: Pelvis XRAY; Complete Time: 11:05 [facility] 04/01 09:18 Order name: Shoulder Left (2 View) XRAY; Complete Time: 11:05 [facility] 04/01 09:18 Order name: Chest Single View XRAY; Complete Time: 11:05 [facility] 04/01 09:18 Order name: CT Chest W/ Con: chest wall pain, sob [facility] 04/01 09:18 Order name: INCENTIVE SPIROMETRY [facility] 04/01 10:24 Order name: CT Chest Wo Con: fall, left chest wall pain; Complete Time: 11:05 [facility] 04/01 11:07 Order name: EKG; Complete Time: 11:07 [facility] 04/01 11:07 Order name: EKG - Nurse/Tech; Complete Time: 11:49 [facility] EC:54 Rate is 50 beats/min. Rhythm is regular. QRS [place] is Normal. SD interval is normal. QRS jl interval is normal. QT interval is normal. No Q waves. T waves are Normal. No ST changes noted. Clinical impression: Sinus bradycardia and No evidence of ischemia. Interpreted by me. Reviewed by me. Administered Medications: 09:36 Drug: Zofran (Ondansetron) 4 mg Route: IVP; Site: left antecubital; em 10:56 Follow up: Response: No adverse reaction em 09:38 Drug: morphine 4 mg Route: IVP; Site: left antecubital; em 10:56 Follow up: Response: No adverse reaction; Marked relief of symptoms; Pain is decreased; em RASS: Alert and Calm (0) 10:23 Not Given (Duplicate Order): TORadol 30 mg IVP once jl 11:14 Drug: morphine 4 mg Route: IVP; Site: left antecubital; em 13:41 Follow up: Response: No adverse reaction em 16:13 Drug: Zofran (Ondansetron) 4 mg Route: PO; ss 17:41 Follow up: Response: No adverse reaction; Marked relief of symptoms em 16:18 Drug: Meclizine 50 mg Route: PO; em 17:41 Follow up: Response: No adverse reaction; Marked relief of symptoms em Disposition: 04/01/20 11:13 Discharged to Home. Impression: Chest pain on breathing - wall, Fall due to bumping against object, Multiple fractures of ribs, left side - clinically, Obesity, unspecified. - Condition is Stable. - Discharge Instructions: Chest Wall Pain, Costochondritis, Incentive Spirometer, Fall Prevention in the Home, [id number]. - Prescriptions for Tylenol- Codeine #3 300-30 mg Oral Tablet - take 2 tablet by ORAL route every 6 hours As needed; 30 tablet. Zofran 4 mg Oral Tablet - take 1 tablet by ORAL route every 12 hours As needed; 20 tablet. Meclizine 25 mg Oral Tablet - take 1 tablet by ORAL route every 8 hours As needed; 30 tablet. - Medication Reconciliation Form, Thank You Letter, Antibiotic Education, Prescription Opioid Use form. - Follow up: Private Physician; When: 2 - 3 days; Reason: Recheck today's complaints, Continuance of care, Re-evaluation by your physician. - Problem is new. - Symptoms have improved. Signatures: Dispatcher [employer] EDOscar Bolton MD MD cha Munoz, Edgar RN RN Lacey Mark RN RN ss Corrections: (The following items were deleted from the chart) 11:16 11:13 04/01/2020 11:13 Discharged to Home. Impression: Chest pain on breathing - wall; jl Fall due to bumping against object. Condition is Stable. Forms are Medication Reconciliation Form, Thank You Letter, Antibiotic Education, Prescription Opioid Use. Follow up: Private Physician; When: 2 - 3 days; Reason: Recheck today's complaints, Continuance of care, Re-evaluation by your physician. Problem is new. Symptoms have improved. jl 16:54 11:16 04/01/2020 11:13 Discharged to Home. Impression: Chest pain on breathing - wall; jl Fall due to bumping against object; Multiple fractures of ribs, left side - clinically; Obesity, unspecified. Condition is Stable. Discharge Instructions: Chest Wall Pain, Costochondritis, Incentive Spirometer, Fall Prevention in the Home, [id number]. Prescriptions for Tylenol-Codeine #3 300-30 mg Oral Tablet - take 2 tablet by ORAL route every 6 hours As needed; 30 tablet. and Forms are Medication Reconciliation Form, Thank You Letter, Antibiotic Education, Prescription Opioid Use. Follow up: Private Physician; When: 2 - 3 days; Reason: Recheck today's complaints, Continuance of care, Re-evaluation by your physician. Problem is new. Symptoms have improved. [facility] 16:54 16:54 04/01/2020 11:13 Discharged to Home. Impression: Chest pain on breathing - wall; jl Fall due to bumping against object; Multiple fractures of ribs, left side - clinically; Obesity, unspecified; Hypothermia. Condition is Stable. Discharge Instructions: Chest Wall Pain, Costochondritis, Incentive Spirometer, Fall Prevention in the Home, [id number]. Prescriptions for Tylenol-Codeine #3 300-30 mg Oral Tablet - take 2 tablet by ORAL route every 6 hours As needed; 30 tablet, Zofran 4 mg Oral Tablet - take 1 tablet by ORAL route every 12 hours As needed; 20 tablet, Meclizine 25 mg Oral Tablet - take 1 tablet by ORAL route every 8 hours As needed; 30 tablet. and Forms are Medication Reconciliation Form, Thank You Letter, Antibiotic Education, Prescription Opioid Use. Follow up: Private Physician; When: 2 - 3 days; Reason: Recheck today's complaints, Continuance of care, Re-evaluation by your physician. Problem is new. Symptoms have improved. [facility] 17:59 16:54 04/01/2020 11:13 Discharged to Home. Impression: Chest pain on breathing - wall; em Fall due to bumping against object; Multiple fractures of ribs, left side - clinically; Obesity, unspecified. Condition is Stable. Discharge Instructions: Chest Wall Pain, Costochondritis, Incentive Spirometer, Fall Prevention in the Home, [id number]. Prescriptions for Tylenol-Codeine #3 300-30 mg Oral Tablet - take 2 tablet by ORAL route every 6 hours As needed; 30 tablet, Zofran 4 mg Oral Tablet - take 1 tablet by ORAL route every 12 hours As needed; 20 tablet, Meclizine 25 mg Oral Tablet - take 1 tablet by ORAL route every 8 hours As needed; 30 tablet. and Forms are Medication Reconciliation Form, Thank You Letter, Antibiotic Education, Prescription Opioid Use. Follow up: Private Physician; When: 2 - 3 days; Reason: Recheck today's complaints, Continuance of care, Re-evaluation by your physician. Problem is new. Symptoms have improved. jl
--- NOTE | 2020-04-01 11:14 | ER ---
Nurse's Notes [facility] Name: Hari Hernandez Age: 84 yrs Sex: Female : 1935 Arrival Date: 04/01/2020 Time: 09:04 Bed 2 Private MD: Diagnosis: Chest pain on breathing-wall;Fall due to bumping against object;Multiple fractures of ribs, left side-clinically;Obesity, unspecified Presentation: 04/01 09:05 Chief complaint: EMS states: called out for fall after tripping on a gautam while going em to the toilet, reports left shoulder pain and left hip pain, denies hitting head or taking blood thinners, pt reports dizziness and nausea after moving over to hospital stretcher, EMS reports this is a new symptom, pt denies being dizzy when she fell. Coronavirus screen: Proceed with normal triage. Ebola Screen: Patient negative for fever greater than or equal to 101.5 degrees Fahrenheit, and additional compatible Ebola Virus Disease symptoms Patient denies exposure to infectious person. Patient denies travel to an Ebola-affected area in the 21 days before illness onset. No symptoms or risks identified at this time. Initial Sepsis Screen: Does the patient meet any 2 criteria? No. Patient's initial sepsis screen is negative. Does the patient have a suspected source of infection? No. Patient's initial sepsis screen is negative. Risk Assessment: Do you want to hurt yourself or someone else? Patient reports no desire to harm self or others. Onset of symptoms was April 01, 2020. 09:05 Method Of Arrival: EMS: [facility] em 09:05 Acuity: TOMMY 3 em Historical: - Allergies: 09:10 "unknown mycin"; em 09:10 mycins; em 09:10 PENICILLINS; em 09:10 Tetanus Vaccines \\T\\ Toxoid; em - Home Meds: 09:10 amlodipine 5 mg tab 1 tab once daily [Active]; sertraline 50 mg Oral tab 1 tab once em daily [Active]; - PMHx: 09:10 Bronchitis; Colon Infection; Depression; GERD; Hypertension; UTI; em - PSHx: 09:10 Cholecystectomy; Knee surgery; Appendectomy; hip surg; abscess; Hysterectomy; em - Immunization history:: Adult Immunizations not up to date. - Social history:: Smoking status: Patient denies any tobacco usage or history of. Screenin:05 Abuse screen: Denies threats or abuse. Nutritional screening: No deficits noted. em Tuberculosis screening: No symptoms or risk factors identified. Fall Risk None identified. Assessment: 09:10 General: Appears in no apparent distress. comfortable, obese, well groomed, well em developed, Behavior is calm, cooperative, appropriate for age. Pain: Complains of pain in left breast and left lateral anterior chest and anterior aspect of left upper chest Pain currently is 8 out of 10 on a pain scale. Pain began 1 hour ago. Neuro: Level of Consciousness is awake, alert, obeys commands, Oriented to person, place, time, situation, Appropriate for age. Cardiovascular: Capillary refill < 3 seconds Patient's skin is warm and dry. Respiratory: Reports pain with respiration Airway is patent Respiratory effort is even, unlabored, Respiratory pattern is regular, symmetrical. Derm: Skin is intact, is healthy with good turgor, Skin is pink, warm \\T\\ dry. Musculoskeletal: Capillary refill < 3 seconds, Range of motion: intact in all extremities. 10:00 Reassessment: Patient appears in no apparent distress at this time. Patient and/or em family updated on plan of care and expected duration. Pain level reassessed. Patient is alert, oriented x 3, equal unlabored respirations, skin warm/dry/pink. Patient states feeling better. 11:05 Reassessment: reports more pain after CT, rates pain 09/02, Dr. Cee notified. em 13:01 Reassessment: Patient appears in no apparent distress at this time. pending em transportation, son has been notified of discharge but son is out of town. 13:40 Reassessment: called Ezequiel David at [phone] and left a voicemail to see if he em could arrange transportation, charge nurse notified. 14:30 Reassessment: Patient appears in no apparent distress at this time. Patient and/or em family updated on plan of care and expected duration. Pain level reassessed. Patient is alert, oriented x 3, equal unlabored respirations, skin warm/dry/pink. 15:30 Reassessment: Patient appears in no apparent distress at this time. Patient and/or em family updated on plan of care and expected duration. Pain level reassessed. Patient is alert, oriented x 3, equal unlabored respirations, skin warm/dry/pink. 16:10 Reassessment: attempted to get pt in the car, pt reports severe dizziness and began to em vomit, Dr. Cee notified, brought pt back into the ED and received new orders, will continue to monitor nausea/dizziness. 17:03 Reassessment: Kristen Ballard, , to be called when pt is ready for discharge.[email or web address] 17:36 Reassessment: pt reports feeling slightly better, ambulated about ten feet with em assistance, tolerated well, will notify Kristen to come supervisor opening and picking pt. Vital Signs: 09:05 BP 187 / 68; Pulse 58; Resp 18; Temp 98.8(O); Pulse Ox 98% on R/A; Weight 89.81 kg; em Height 5 ft. 4 in. (162.56 cm); Pain 8/10; 10:00 BP 143 / 50; Pulse 49; Resp 18; Pulse Ox 99% on R/A; em 11:49 BP 123 / 49; Pulse 51; Resp 19; Pulse Ox 97% on R/A; Pain 7/10; em 13:44 BP 146 / 59; Pulse 57; Resp 16; Pulse Ox 96% on R/A; em 09:05 Body Mass Index 33.99 (89.81 kg, 162.56 cm) em ED Course: 09:04 Patient arrived in ED. em 09:05 Oscar Cee MD is Attending Physician. jl 09:05 Patient has correct armband on for positive identification. Bed in low position. Call em light in reach. Side rails up X2. Pulse ox on. NIBP on. 09:08 Triage completed. em 09:10 Arm band placed on. em 09:21 See Juárez, RN is Primary Nurse. em 09:39 Radiology exam delayed due to lab results not completed at this time. (BUN/Creatinine). bq 10:26 Pelvis XRAY In Process Unspecified. EDMS 10:26 Shoulder Left (2 View) XRAY In Process Unspecified. EDMS 10:27 Chest Single View XRAY In Process Unspecified. EDMS 10:37 CT Chest W/ Con: chest wall pain, sob In Process Unspecified. EDMS 10:37 CT completed. Patient tolerated procedure well. Patient moved back from CT. bq 10:46 CT Chest Wo Con: fall, left chest wall pain In Process Unspecified. EDMS 17:56 No provider procedures requiring assistance completed. IV discontinued, intact, em bleeding controlled, No redness/swelling at site. Pressure dressing applied. Administered Medications: 09:36 Drug: Zofran (Ondansetron) 4 mg Route: IVP; Site: left antecubital; em 10:56 Follow up: Response: No adverse reaction em 09:38 Drug: morphine 4 mg Route: IVP; Site: left antecubital; em 10:56 Follow up: Response: No adverse reaction; Marked relief of symptoms; Pain is decreased; em RASS: Alert and Calm (0) 10:23 Not Given (Duplicate Order): TORadol 30 mg IVP once jl 11:14 Drug: morphine 4 mg Route: IVP; Site: left antecubital; em 13:41 Follow up: Response: No adverse reaction em 16:13 Drug: Zofran (Ondansetron) 4 mg Route: PO; ss 17:41 Follow up: Response: No adverse reaction; Marked relief of symptoms em 16:18 Drug: Meclizine 50 mg Route: PO; em 17:41 Follow up: Response: No adverse reaction; Marked relief of symptoms em Outcome: 11:13 Discharge ordered by . jl 17:56 Discharged to home via wheelchair, with friend. em 17:56 Condition: stable 17:56 Discharge instructions given to patient, friend, Instructed on discharge instructions, follow up and referral plans. medication usage, Demonstrated understanding of instructions, follow-up care, medications, Prescriptions given X 3. 17:59 Patient left the ED. em Signatures: Dispatcher [employer] EDOscar Bolton MD MD cha Quilty, Betty bq Munoz, Edgar, RN RN em Lacey Mark, MICAELA RN Richard Del Rio RN RN jl7
[2020-04-01] MEDS ORDERED: ONDANSETRON 4 MG (ODT) TAB ONE (16:06)
[2020-04-01] MEDS ORDERED: MECLIZINE HCL 12.5 MG TAB ONE (16:21)
[2020-04-01 18:09] VITALS: TEMP 98.8
[2020-04-01 18:15] VITALS: BP 146/59; O2SAT 96
--- NOTE | 2020-04-02 08:41 | EKG ---
Test Date: 2020-04-01 Test Time: 11:49:31 Facility Maintenance Technician: MARLENE MEASUREMENT RESULTS: Intervals: Rate: 50 GA: 170 QRSD: 82 QT: 456 QTc: 415 [place]: P: 26 GA: 170 QRS: 25 T: 58 INTERPRETIVE STATEMENTS: Sinus bradycardia Otherwise normal ECG Compared to ECG 06/01/2019 20:02:58 Sinus rhythm no longer present Electronically Signed On 04-02-20 08:40:15 CDT by Dl Dawn
== END 2020-04-01 17:59 | disposition home or self-care (01) ==
LOC: ER 08:59
DX: S22.42XA Multiple fractures of ribs, left side, initial encounter for closed fracture (principal); E66.9 Obesity, unspecified; W19.XXXA Unspecified fall, initial encounter; Y93.89 Activity, other specified; Y92.9 Unspecified place or not applicable; I10 Essential (primary) hypertension; Z88.0 Allergy status to penicillin; Z88.3 Allergy status to other anti-infective agents; Z88.7 Allergy status to serum and vaccine
CPT/HCPCS: 93005; 85025; 36415; 80053; 71250; 71260; 71045; 72170; 73030; 96375; 96374; 99284; J2405; J8597

== ENCOUNTER 2021-02-16 11:42 | Emergency (ER) | payer MEDICARE, OTHER ==
[2021-02-16 12:37] LABS: Basophils % 0.6 % (0-1.3); Hematocrit 30.4 % (36.0-45.0); Lymphocytes % 31.9 % (15.3-44.8); MPV 9.9 fL (7.6-11.3); RBC Red Blood Cell Count 3.92 M/uL (3.86-4.86)
[2021-02-16 12:38] LABS: Protime INR 1.03
--- NOTE | 2021-02-16 12:59 | RAD REPORT ---
EXAM DESCRIPTION: CT - Head C Spine Mpr Wo Con - 02/16/2021 12:39 pm CLINICAL HISTORY: Head and neck injury status post fall. Head and neck pain COMPARISON: 2017 TECHNIQUE: Computed axial tomography of the head and cervical spine was obtained. Sagittal and coronal reconstruction was performed. All CT scans are performed using dose optimization technique as appropriate and may include automated exposure control or mA/KV adjustment according to patient size. FINDINGS: An intracranial bleed is not seen. The ventricles are normal in caliber. An extra-axial fl uid collection is not noted. Mild to moderate low-density areas within periventricular, deep and subc ortical white matter likely ischemic changes secondary to small vessel disease. The head is tilted to wards the right. Perhaps this is secondary to muscle spasm Fluid within the visualized sinuses and mastoids is not seen. A cervical fracture is not visualized. No dislocation is noted.Spondylosis involves cervical spine re sulting in foraminal and central spinal stenosis. Congenital nonunion posterior elements C1 IMPRESSION: No acute intracranial abnormality is seen. A cervical fracture is not visualized. If the patient continues to have symptoms to suggest intracra nial /spinal cord pathology then MRI would be recommended
--- NOTE | 2021-02-16 13:15 | RAD REPORT ---
EXAM DESCRIPTION: RAD - Shoulder Right 2 View - 02/16/2021 1:01 pm CLINICAL HISTORY: Right shoulder pain FINDINGS: Artifact overlies the right shoulder. Bones are osteoporotic. No fracture or dislocation is seen.
--- NOTE | 2021-02-16 13:18 | RAD REPORT ---
EXAM DESCRIPTION: Dorothy Single View02/16/2021 1:06 pm CLINICAL HISTORY: Chest pain COMPARISON: 2019 FINDINGS: The lungs appear clear of acute infiltrate. The heart is normal size. Small to moderate h ernia IMPRESSION: No acute abnormalities displayed
--- NOTE | 2021-02-16 13:20 | RAD REPORT ---
EXAM DESCRIPTION: RAD - Hip Right 2 View - 02/16/2021 1:02 pm CLINICAL HISTORY: Right hip pain FINDINGS: No acute fracture or dislocation seen Compression screw and sideplate affixing old femoral fracture. Bones are osteoporotic
[2021-02-16 13:26] LABS: Albumin 3.6 g/dL (3.4-5.0); Bilirubin Direct 0.1 mg/dL (0-0.2); Bilirubin Total 0.5 mg/dL (0.2-1.0); Potassium 4.4 mmol/L (3.5-5.1); Protein, Total 7.5 g/dL (6.4-8.2)
--- NOTE | 2021-02-16 14:31 | ER ---
Nurse's Notes [facility] Name: Hari Hernandez Age: 85 yrs Sex: Female : 1935 Arrival Date: 02/16/2021 Time: 11:46 Bed 16 Private MD: Diagnosis: Contusion of right shoulder Presentation: 02/16 11:54 Chief complaint: Patient states: Fell from standing, but is unsure why. Denies LOC. Pt ss c/o R shoulder pain that radiates towards neck. C collar placed. Coronavirus screen: Client denies travel out of the [place] in the last 14 days. Ebola Screen: Patient denies exposure to infectious person. Patient denies travel to an Ebola-affected area in the 21 days before illness onset. Initial Sepsis Screen: Does the patient meet any 2 criteria? No. Patient's initial sepsis screen is negative. Does the patient have a suspected source of infection? No. Patient's initial sepsis screen is negative. Risk Assessment: Do you want to hurt yourself or someone else? Patient reports no desire to harm self or others. Onset of symptoms was February 16, 2021. 11:54 Method Of Arrival: EMS: [facility] ss 11:54 Acuity: TOMMY 3 ss Historical: - Allergies: 11:58 "unknown mycin"; ss 11:58 mycins; ss 11:58 PENICILLINS; ss 11:58 Tetanus Vaccines \\T\\ Toxoid; ss - PMHx: 11:58 Bronchitis; Colon Infection; Depression; GERD; Hypertension; UTI; ss - PSHx: 11:58 Cholecystectomy; Knee surgery; Appendectomy; hip surg; abscess; Hysterectomy; ss - Immunization history:: Adult Immunizations up to date. - Social history:: Smoking status: Patient denies any tobacco usage or history of. Screenin:50 Abuse screen: Denies threats or abuse. Nutritional screening: No deficits noted. jd3 Tuberculosis screening: No symptoms or risk factors identified. Fall Risk Ambulatory Aid- None/Bed Rest/Nurse Assist (0 pts). Gait- Normal/Bed Rest/Wheelchair (0 pts) Mental Status- Oriented to own ability (0 pts). Total Hinton Fall Scale indicates No Risk (0-24 pts). Assessment: 12:15 General: Appears in no apparent distress. uncomfortable, Behavior is calm, cooperative, jd3 appropriate for age. Pain: Complains of pain in right shoulder and neck Quality of pain is described as sharp, tender. Neuro: Level of Consciousness is awake, alert, confused, Oriented to person, place, son reports pt at baseline mentation. Cardiovascular: Denies chest pain, Capillary refill < 3 seconds Patient's skin is warm and dry. Respiratory: Airway is patent Respiratory effort is even, unlabored, Respiratory pattern is regular, symmetrical, Denies cough, shortness of breath. GI: Abdomen is round non-distended, Abd is soft and non tender X 4 quads. Patient currently denies diarrhea, nausea, vomiting. : No signs and/or symptoms were reported regarding the genitourinary system. EENT: No signs and/or symptoms were reported regarding the EENT system. Derm: Skin is intact, Skin is dry, Skin is normal, Skin temperature is warm. Musculoskeletal: Circulation, motion, and sensation intact. Range of motion: intact in all extremities. 12:51 Reassessment: Patient appears in no apparent distress at this time. No changes from jd3 previously documented assessment. Patient and/or family updated on plan of care and expected duration. Pain level reassessed. 14:50 Reassessment: Patient appears in no apparent distress at this time. No changes from jd3 previously documented assessment. Patient and/or family updated on plan of care and expected duration. Pain level reassessed. awaiting ride for discharge. 15:24 Reassessment: Patient appears in no apparent distress at this time. Patient and/or jd3 family updated on plan of care and expected duration. Pain level reassessed. son contacted to arrange transfer for pt discharge. Vital Signs: 11:54 BP 145 / 64; Pulse 72; Resp 16; Temp 98.4(TE); Pulse Ox 98% on R/A; Weight 95.25 kg; ss 12:51 BP 158 / 73; Pulse 66; Resp 17 S; Pulse Ox 97% on R/A; jd3 14:50 BP 150 / 79; Pulse 65; Resp 16 S; Pulse Ox 97% on R/A; jd3 16:13 BP 145 / 83; Pulse 68; Resp 17 S; Pulse Ox 96% on R/A; jd3 ED Course: 11:46 Patient arrived in ED. ds1 11:47 Abhijit Salcido PA is PHCP. jr8 11:47 Lawrence Medel MD is Attending Physician. jr8 11:57 Triage completed. ss 11:58 Arm band placed on right wrist. 12:07 Bradley Hester, MICAELA is Primary Nurse. jd3 12:15 Inserted saline lock: 20 gauge in left antecubital area, using aseptic technique. Blood jd3 collected. placed by [employer]. 12:39 CT Head C Spine In Process Unspecified. EDMS 12:52 Patient has correct armband on for positive identification. Placed in gown. Bed in low jd3 position. Call light in reach. Side rails up X2. monitoring specialist on. Pulse ox on. NIBP on. 13:02 XRAY Shoulder RIGHT 2 view In Process Unspecified. EDMS 13:02 XRAY Chest (1 view) In Process Unspecified. EDMS 13:02 Hip Right 2 View In Process Unspecified. EDMS 14:14 XRAY Hip LEFT 2 view In Process Unspecified. EDMS 16:13 No provider procedures requiring assistance completed. IV discontinued, intact, jd3 bleeding controlled, No redness/swelling at site. Pressure dressing applied. Administered Medications: 15:23 Drug: Tylenol 1000 mg Route: PO; jd3 Outcome: 14:30 Discharge ordered by . jr8 16:15 Discharged to home via wheelchair, with friend. jd3 16:15 Condition: stable 16:15 Discharge instructions given to patient, family, Instructed on discharge instructions, follow up and referral plans. Demonstrated understanding of instructions, follow-up care. 16:16 Patient left the ED. jd3 Signatures: Dispatcher [employer] [facility] KiserJolene ds1 Lacey Mark RN RN Abhijit Salcido PA PA jr8 Bradley Hester, MICAELA RN jd3
--- NOTE | 2021-02-16 14:31 | EDPHYS ---
Physician Documentation [facility] Name: Hari Hernandez Age: 85 yrs Sex: Female : 1935 Arrival Date: 02/16/2021 Time: 11:46 Bed 16 Private MD: ED Physician Lawrence Medel HPI: 02/16 12:05 This 85 yrs old Female presents to ER via EMS with complaints of fall. jr8 12:05 Details of fall: The patient fell from an upright position, while standing. Onset: The jr8 symptoms/episode began/occurred acutely, just prior to arrival, today. Associated injuries: The patient sustained right shoulder, neck, left hip. Severity of symptoms: At their worst the symptoms were mild, in the emergency department the symptoms are unchanged. It is unknown whether or not the patient has had similar symptoms in the past. It is unknown whether or not the patient has recently seen a physician. Patient with history of dementia. Alert and oriented to person and place. Could not remember events of fall well. Unknown if it was mechanical vs medical in relation. Denies dizziness, CP, SOB, or anginal equivelant symptoms at this time . Historical: - Allergies: 11:58 "unknown mycin"; ss 11:58 mycins; ss 11:58 PENICILLINS; ss 11:58 Tetanus Vaccines \\T\\ Toxoid; ss - PMHx: 11:58 Bronchitis; Colon Infection; Depression; GERD; Hypertension; UTI; ss - PSHx: 11:58 Cholecystectomy; Knee surgery; Appendectomy; hip surg; abscess; Hysterectomy; ss - Immunization history:: Adult Immunizations up to date. - Social history:: Smoking status: Patient denies any tobacco usage or history of. ROS: 12:05 Eyes: Negative for injury, pain, redness, and discharge, ENT: Negative for injury, jr8 pain, and discharge, Cardiovascular: Negative for chest pain, palpitations, and edema, Respiratory: Negative for shortness of breath, cough, wheezing, and pleuritic chest pain, Abdomen/GI: Negative for abdominal pain, nausea, vomiting, diarrhea, and constipation, Back: Negative for injury and pain, Skin: Negative for injury, rash, and discoloration, Neuro: Negative for headache, weakness, numbness, tingling, and seizure. 12:05 Neck: Positive for pain with movement, pain at rest, Negative for tenderness, bony tenderness. 12:05 MS/extremity: Positive for pain, tenderness, of the right shoulder and left hip. Exam: 12:16 Constitutional: This is a well developed, well nourished patient who is awake, alert, jr8 and in no acute distress. Head/Face: Normocephalic, atraumatic. Eyes: Pupils equal round and reactive to light, extra-ocular motions intact. Lids and lashes normal. Conjunctiva and sclera are non-icteric and not injected. Cornea within normal limits. Periorbital areas with no swelling, redness, or edema. ENT: Nares patent. No nasal discharge, no septal abnormalities noted. Tympanic membranes are normal and external auditory canals are clear. Oropharynx with no redness, swelling, or masses, exudates, or evidence of obstruction, uvula midline. Mucous membranes moist. Neck: Trachea midline, no thyromegaly or masses palpated, and no cervical lymphadenopathy. Supple, full range of motion without nuchal rigidity, or vertebral point tenderness. No Meningismus. Mild pain upon palpation to lateral soft tissue region bilaterally Cardiovascular: Regular rate and rhythm with a normal S1 and S2. No gallops, murmurs, or rubs. Normal PMI, no JVD. No pulse deficits. Respiratory: Lungs have equal breath sounds bilaterally, clear to auscultation and percussion. No rales, rhonchi or wheezes noted. No increased work of breathing, no retractions or nasal flaring. Abdomen/GI: Soft, non-tender, with normal bowel sounds. No distension or tympany. No guarding or rebound. No evidence of tenderness throughout. Back: No spinal tenderness. No costovertebral tenderness. Full range of motion. Skin: Warm, dry with normal turgor. Normal color with no rashes, no lesions, and no evidence of cellulitis. Neuro: Awake and alert, GCS 15, oriented to person, place, situation. Cranial nerves II-XII grossly intact. Motor strength 5/5 in all extremities. Sensory grossly intact. 12:16 Musculoskeletal/extremity: Extremities: grossly normal except: noted in the right shoulder: decreased ROM, pain, tenderness, noted in the left hip: pain, tenderness, Circulation is intact in all extremities. Sensation intact. Vital Signs: 11:54 BP 145 / 64; Pulse 72; Resp 16; Temp 98.4(TE); Pulse Ox 98% on R/A; Weight 95.25 kg; ss 12:51 BP 158 / 73; Pulse 66; Resp 17 S; Pulse Ox 97% on R/A; jd3 14:50 BP 150 / 79; Pulse 65; Resp 16 S; Pulse Ox 97% on R/A; jd3 16:13 BP 145 / 83; Pulse 68; Resp 17 S; Pulse Ox 96% on R/A; jd3 MDM: 11:47 Patient medically screened. [facility] 14:29 Data reviewed: vital signs, nurses notes, lab test result(s), EKG, radiologic studies, [facility] CT scan, plain films. Data interpreted: Pulse oximetry: on room air is 97 %. Interpretation: normal. Counseling: I had a detailed discussion with the patient and/or guardian regarding: the historical points, exam findings, and any diagnostic results supporting the discharge/admit diagnosis, lab results, radiology results, the need for outpatient follow up, a family practitioner, to return to the emergency department if symptoms worsen or persist or if there are any questions or concerns that arise at home. 02/16 11:58 Order name: Basic Metabolic Panel; Complete Time: 13:02/16 11:58 Order name: CBC with Diff; Complete Time: 13:02/16 11:58 Order name: LFT's; Complete Time: 13:02/16 11:58 Order name: Magnesium; Complete Time: 13:30 02/16 11:58 Order name: PT-INR; Complete Time: 13:02/16 11:58 Order name: XRAY Shoulder RIGHT 2 view; Complete Time: 13:23 02/16 11:58 Order name: EKG; Complete Time: 11:59 02/16 11:58 Order name: Cardiac monitoring; Complete Time: 12:07 02/16 11:58 Order name: CT Head C Spine; Complete Time: 13:00 02/16 11:58 Order name: XRAY Chest (1 view); Complete Time: 13:23 [facility] 02/16 12:52 Order name: Hip Right 2 View; Complete Time: 13: [facility] [place] 02/16 13:24 Order name: XRAY Hip LEFT 2 view; Complete Time: 15:15 02/16 11:58 Order name: EKG - Nurse/Tech; Complete Time: 12:30 02/16 11:58 Order name: IV Saline Lock; Complete Time: 12:30 02/16 11:58 Order name: Labs collected and sent; Complete Time: 12:30 02/16 11:58 Order name: O2 Per Protocol; Complete Time: 12:07 02/16 11:58 Order name: O2 Sat Monitoring; Complete Time: 12:07 Administered Medications: 15:23 Drug: Tylenol 1000 mg Route: PO; jd3 Disposition: 18:18 Co-signature as Attending Physician, Lawrence Medel MD I agree with the assessment and kdr plan of care. Disposition: 02/16/21 14:30 Discharged to Home. Impression: Contusion of right shoulder. - Condition is Stable. - Discharge Instructions: Shoulder Pain. - Medication Reconciliation Form, Thank You Letter, Antibiotic Education, Prescription Opioid Use form. - Follow up: Private Physician; When: As needed; Reason: Recheck today's complaints, Continuance of care, Re-evaluation by your physician. - Problem is new. - Symptoms have improved. Signatures: Dispatcher [employer] EDMD Lawrence Medel MD MD [facility] Lacey Mark RN RN Abhijit Salcido PA PA jr8 Bradley Hester RN RN jd3 Corrections: (The following items were deleted from the chart) 12:52 11:59 Hip Left 2 View+RAD.RAD.BRZ ordered. [facility] 16:16 14:30 02/16/2021 14:30 Discharged to Home. Impression: Contusion of right shoulder. jd3 Condition is Stable. Forms are Medication Reconciliation Form, Thank You Letter, Antibiotic Education, Prescription Opioid Use. Follow up: Private Physician; When: As needed; Reason: Recheck today's complaints, Continuance of care, Re-evaluation by your physician. Problem is new. Symptoms have improved. jr8
--- NOTE | 2021-02-16 15:14 | RAD REPORT ---
EXAM DESCRIPTION: RAD - Hip Left 2 View - 02/16/2021 2:15 pm CLINICAL HISTORY: Left hip pain status post injury FINDINGS: No fracture or dislocation is seen. Bones are osteoporotic. If the patient has clinical symptoms to suggest an occult fracture MRI would be recommended
[2021-02-16] MEDS ORDERED: ACETAMINOPHEN 500 MG TAB ONE (15:19)
--- NOTE | 2021-02-17 11:14 | EKG ---
Test Date: 2021-02-16 Test Time: 12:26:34 Smash Hand: DANICA MEASUREMENT RESULTS: Intervals: Rate: 66 NH: 178 QRSD: 66 QT: 390 QTc: 408 [place]: P: 34 NH: 178 QRS: 30 T: 65 INTERPRETIVE STATEMENTS: Normal sinus rhythm Cannot rule out Anterior infarct, age undetermined Abnormal ECG Compared to ECG 04/01/2020 11:49:31 Myocardial infarct finding now present Sinus bradycardia no longer present Electronically Signed On 02-17-21 11:11:26 CDT by Dl Dawn
[2021-02-17 12:41] VITALS: TEMP 98.4
[2021-02-17 12:45] VITALS: BP 145/83; O2SAT 96
== END 2021-02-16 16:16 | disposition home or self-care (01) ==
LOC: ER 11:42
DX: S40.011A Contusion of right shoulder, initial encounter (principal); M25.552 Pain in left hip; M54.2 Cervicalgia; F03.90 Unspecified dementia, unspecified severity, without behavioral disturbance, psychotic disturbance, mood disturbance, and anxiety; F32.9 Major depressive disorder, single episode, unspecified; K21.9 Gastro-esophageal reflux disease without esophagitis; I10 Essential (primary) hypertension; W19.XXXA Unspecified fall, initial encounter
CPT/HCPCS: 36415; 70450; 71045; 72125; 80048; 80076; 83735; 85025; 85610; 93005; 99284

== ENCOUNTER 2021-03-13 20:52 | Inpatient (IN) | payer MEDICARE ==
[2021-03-13 21:22] VITALS: BMI 37.6
[2021-03-13] MEDS ORDERED: ONDANSETRON 4 MG/2 ML VIAL IV PRN (21:29)
[2021-03-13] MEDS ORDERED: ALPRAZOLAM 0.25 MG TABLET PO PRN (21:29)
[2021-03-13] MEDS ORDERED: ACETAMINOPHEN 500 MG TAB PO PRN (21:29)
[2021-03-13] MEDS ORDERED: AMLODIPINE 5 MG TAB PO ONE (21:35)
[2021-03-13 21:55] LABS: Absolute Lymphocytes (CBC) 5.5 K/uL (0.7-4.9); Basophils % 0.5 % (0-1.3); Hematocrit 30.3 % (36.0-45.0); Lymphocytes % 38.9 % (15.3-44.8); MPV 9.5 fL (7.6-11.3); RBC Red Blood Cell Count 3.96 M/uL (3.86-4.86)
[2021-03-13] MEDS ORDERED: LOSARTAN POTASSIUM 50 MG TABLET PO SCH (22:00)
[2021-03-13 22:15] LABS: Albumin 3.7 g/dL (3.4-5.0); Bilirubin Total 0.4 mg/dL (0.2-1.0); Phosphorus 2.4 mg/dL (2.5-4.9); Potassium 4.2 mmol/L (3.5-5.1); Protein, Total 7.5 g/dL (6.4-8.2)
[2021-03-13 23:20] LABS: Urine Appearance CLOUDY (Clear); Urine Blood NEGATIVE (Negative); Urine Color YELLOW (Yellow); Urine Glucose NEGATIVE (Negative); Urine Protein 2+ (Negative); Urine Specific Gravity 1.025 (1.005-1.030); Urine Urobilinogen 0.2 mg/dL (0.2-1.0); Urine pH 5.5 (5.0-7.0)
[2021-03-13 23:37] LABS: Urine Microscopic Reflex ORDER UMIC
[2021-03-13 23:41] LABS: Urine Bilirubin NEGATIVE (Negataive)
[2021-03-14 06:05] LABS: Urine Bacteria <20 /HPF (<20); Urine RBC NONE SEEN /HPF (NONE SEEN)
[2021-03-14 06:16] LABS: RBC Red Blood Cell Count 3.74 M/uL (3.86-4.86)
[2021-03-14 06:37] LABS: HDL Cholesterol 45 mg/dL (40-60); LDL Cholesterol, Calculated 102 (<130); Troponin I < 0.02 ng/mL (0.0-0.045)
[2021-03-14 06:54] LABS: Ferritin 12.4 ng/mL (8-388); Folic Acid, (Folate) 10.2 ng/mL (3.1-17.5)
[2021-03-14] MEDS ORDERED: CYANOCOBALAMIN 1000MCG/ML INJ IM ONE (07:25)
[2021-03-14] MEDS: HYDRALAZINE HCL 10 MG TABLET PO SCH ×2 (08:41→20:58)
[2021-03-14] MEDS: AMLODIPINE 10 MG TAB PO SCH (08:41)
[2021-03-14] MEDS: ENOXAPARIN 30 MG/0.3 ML SQ SCH (08:41)
[2021-03-14] MEDS: LOSARTAN POTASSIUM 50 MG TABLET PO SCH ×2 (08:41→20:59)
--- NOTE | 2021-03-14 08:44 | RAD REPORT ---
EXAM DESCRIPTION: RAD - Chest Single View - 03/14/2021 5:15 am CLINICAL HISTORY: pneumonia Chest pain. COMPARISON: Chest Single View dated 02/16/2021; Chest Single View dated 04/01/2020; Chest Single View d ated 06/01/2019; Chest Single View dated 03/09/2018 FINDINGS: Portable technique limits examination quality. The lungs are grossly clear. The heart is normal in size. No displaced fractures. IMPRESSION: No acute intrathoracic process suspected.
[2021-03-14] MEDS: NA CHLORIDE 0.9% 1,000 ML IV SCH (08:45)
[2021-03-14] MEDS ORDERED: HYDRALAZINE HCL 25 MG TABLET PO SCH (09:00)
[2021-03-14] MEDS: SOD FERRIC GLUC COMPLX/SUCROSE 125 MG in NA CHLORIDE 0.9% 100 ML IV SCH (09:11)
[2021-03-14 09:12] LABS: Blood Morphology Comment NOT SEEN (NOT SEEN); Platelet Estimate ADEQ
[2021-03-14 13:34] LABS: Absolute Lymphocytes (CBC) 4.4 K/uL (0.7-4.9); Basophils % 0.4 % (0-1.3); Hematocrit 30.4 % (36.0-45.0); Lymphocytes % 36.7 % (15.3-44.8); MPV 10.2 fL (7.6-11.3); RBC Red Blood Cell Count 3.93 M/uL (3.86-4.86)
--- NOTE | 2021-03-14 14:49 | RAD REPORT ---
EXAM DESCRIPTION: CT - Head Brain Wo Cont - 03/14/2021 2:10 pm CLINICAL HISTORY: dizziness COMPARISON: Head Brain Wo Cont dated 06/01/2019 TECHNIQUE: Axial 5 mm thick images of the head were obtained without IV contrast. All CT scans are performed using dose optimization technique as appropriate and may include automated exposure control or mA/KV adjustment according to patient size. FINDINGS: No intracranial hemorrhage, mass, edema or shift of mid-line structures. No acute infarcti on changes seen. No cortical edema or sulcal effacement. Atrophy changes are mild. Ventricles are in proportion to the volume loss. Patient has prominent chronic ischemic pattern in the cerebral white m atter matching the prior study. Mastoid air cells and visualized portions of the paranasal sinuses are clear. No acute bony findings. IMPRESSION: Mild for age atrophy and moderate severity chronic ischemic change matching prior imagin g. No acute intracranial finding.
--- NOTE | 2021-03-14 16:08 | EKG ---
Test Date: 2021-03-14 Test Time: 10:01:43 Edge Trimming Machine Operator: ARDEN MEASUREMENT RESULTS: Intervals: Rate: 60 [place]: 114 QRSD: 72 QT: 416 QTc: 416 [place]: P: -14 [place]: 114 QRS: 15 T: 56 INTERPRETIVE STATEMENTS: Normal sinus rhythm Normal ECG Compared to ECG 02/16/2021 12:26:34 Myocardial infarct finding no longer present Electronically Signed On 03-14-21 16:06:53 CDT by Dl Dawn
--- NOTE | 2021-03-14 16:20 | RAD REPORT ---
EXAM DESCRIPTION: US - Abdomen Exam Complete - 03/14/2021 3:43 pm CLINICAL HISTORY: nausea and vomiting COMPARISON: Abdomen Pelvis W Contrast dated 08/15/2017 FINDINGS: Gallbladder is absent. No mass or abnormal fluid collection in the gallbladder fossa. [place] Common bile duct is normal with no common duct stone identified. Liver and spleen are normal size. No focal lesions seen. Liver echogenicity suggest borderline to mil d fatty infiltration. There is decrease in sonographic penetrance consistent with fatty infiltration. This decreases sensitivity for liver lesion detection. No portal vein abnormality seen. The pancreas is obscured by bowel gas. No hydronephrosis of either kidney. A 4 cm cyst is present upper pole right kidney matching the prior CT study. In the upper pole left kidney a 1.8 centimeter rounded anechoic to hypoechoic mass is pres ent. An 11 millimeter cyst was present in this location in 2017. This is most likely interval enlarge ment of a cyst. Hypoechoic tissue is seen in the lateral margin left kidney probably body habitus aff ects rather than a true mass lesion. Patient had a prominent normal variant Column of Jerry configur ation in the mid left kidney. Aorta and IVC are grossly normal but partially obscured. No ascites or bulky lymphadenopathy. IMPRESSION: Status post cholecystectomy with no biliary tree dilatation. Fatty infiltration of the liver with no focal liver lesion identifiable. Sensitivity is decreased in the setting of fatty infiltration. Upper pole left renal mass enlargement is believed to be benign cyst enlargement. More heterogeneous tissue lateral left kidney is probably artifact. If and when tolerable by the patient, contrast CT im aging could be performed for more definitive left renal assessment. Pancreas, aorta and IVC are too obscured by bowel gas for assessment. The structures could be assesse d at the time of any subsequent CT study.
--- NOTE | 2021-03-14 16:22 | RAD REPORT ---
EXAM DESCRIPTION: US - CP - 03/14/2021 3:42 pm CLINICAL HISTORY: syncope COMPARISON: Head C Spine Mpr Wo Con dated 02/16/2021 TECHNIQUE: Real-time sonographic evaluation of bilateral carotid and vertebral systems was performed . Ricketts scale and Doppler interrogation were performed with waveform tracing bilaterally. FINDINGS: Normal high resistance waveforms are noted in both external carotid arteries. The common c arotid arteries and internal carotid arteries show normal low resistance waveforms. Mild plaquing changes are present in the right carotid bulb and proximal right ICA. Visually there is no significant luminal narrowing. Right-sided peak systolic velocity values and ICA/CCA ratio do not indicate stenosis. The left common carotid and internal carotid arteries are quite tortuous. This ma kes it difficult to obtain accurate velocity values and waveforms. Plaquing changes are visible in th e bulb and proximal ICA on the left. Visually this does not significantly narrow the lumen. The veloc ity values and ratios also indicate no significant left-sided stenosis. Antegrade flow seen in both vertebral arteries. Velocity values and ratios were recorded and are retained in the patient's imaging records. IMPRESSION: Mild right-sided and [id number] left-sided bulb and proximal ICA plaquing changes. Left carotid vasculature is quite tortuous. Collective findings do not support hemodynamically significant stenosis.
[2021-03-15] MEDS: NA CHLORIDE 0.9% 1,000 ML IV SCH ×2 (03:06→23:19)
[2021-03-15] MEDS: PANTOPRAZOLE 40MG TABLET PO SCH (06:30)
--- NOTE | 2021-03-15 07:58 | P.HP ---
Certification for Inpatient Patient admitted to: Inpatient With expected LOS: >2 Midnights Patient will require the following post-hospital care: None Practitioner: I am a practitioner with admitting privileges, knowledge of patient current condition, hospital course, and medical plan of care. Services: Services provided to patient in accordance with Admission requirements found in Title 42 Section 412.3 of the Code of Federal Regulations Patient History Date of Service: 03/13/21 Reason for admission: Intractable nausea and vomiting; syncope with falls; malignant hypertension History of Present Illness: Patient is an 85-year-old female who has been having issues with persistent nausea for the last week. She does have the occasional vomiting. She has been taking omeprazole at home with little relief. Symptoms have gotten gradually worse. She also had an episode were she got lightheaded and fell. Unsure if she completely passed out as there was no one with her at the independent living that she lives then. She is a resident at [facility] and and she is been living in independent living for a long time. However, according to her son she has been declining and she is also being getting forgetful. Her blood pressure has been significantly elevated over the last few weeks. Her systolic blood pressure stays in the 180-190s and her diastolic is in the 90-100s. She does take amlodipine. However, it apparently is not helping her blood pressure remained controlled. She was admitted and labs have not shown anything substantially unremarkable except for B12 deficiency and acute renal insufficiency. Patient will be given gentle hydration. Will monitor additional labs including iron studies that she is slightly anemic. She will probably have to follow up with Nephrology at discharge. Renal ultrasound is pending. Allergies codeine Allergy (Verified 03/13/21 22:10) Nausea/Vomiting morphine Allergy (Verified 03/13/21 22:09) Nausea/Vomiting Penicillins Allergy (Mild, Uncoded 08/15/17 23:45) Unknown "unknown mycin" Allergy (Uncoded 08/15/17 23:45) Unknown mycins Allergy (Uncoded 03/09/18 18:10) Unknown Home Medications: Amlodipine [Norvasc] 10 mg PO DAILY 03/13/21 Omeprazole [Prilosec] 40 mg PO DAILY 03/13/21 Sertraline HCl 50 mg PO DAILY 03/13/21 - Past Medical/Surgical History Has patient received pneumonia vaccine in the past: No Diabetic: No -: Iron deficiency anemia -: HTN -: diverticulosis -: Asthma -: Hiatal hernia -: Hip surgery -: Cholecystectomy -: Appendectomy -: myra knee replacement Psychosocial/ Personal History: The patient is a . She has 3 children. Her son Ezequiel is medical power of senior trial attorney - Family History Mother Medical History: Hypertension - Social History Smoking Status: Never smoker Alcohol use: No CD- Drugs: No Caffeine use: No Review of Systems 10-point ROS is otherwise unremarkable Physical Examination - Vital Signs Temperature: 97.6 F Blood Pressure: 148/60 Pulse: 58 Respirations: 18 Pulse Ox (%): 94 - Physical Exam General: Alert, In no apparent distress, Oriented x2, Confused, Other (Patient does get a little confused when asking her specific questions) HEENT: Atraumatic, PERRLA, Mucous membr. moist/pink, EOMI, Sclerae nonicteric Neck: Supple, 2+ carotid pulse no bruit, No LAD, Without JVD or thyroid abnormality Respiratory: Clear to auscultation bilaterally, Normal air movement Cardiovascular: Regular rate/rhythm, Normal S1 S2, Systolic murmur Gastrointestinal: Hypoactive, Soft and benign, Non-distended, Tenderness (Mild epigastric tenderness) Musculoskeletal: No clubbing, No swelling, No tenderness Integumentary: No rashes Neurological: Normal gait, Normal speech, Normal tone, Sensation intact, Cranial nerves 3-12 intact, Normal affect, Abnormal strength Lymphatics: No axilla or inguinal lymphadenopathy - Studies Laboratory Data (last 24 hrs) 03/15/21 05:38: Troponin I < 0.02 03/14/21 11:10: Sodium 143, Potassium 4.0, BUN 23 H, Creatinine 1.51 H, Glucose 103 03/14/21 11:10: WBC 12.10 H D, Hgb 9.5 L, Hct 30.4 L, Plt Count 246 Assessment & Plan - Problems (Diagnosis) (1) Intractable nausea and vomiting Current Visit: Yes Status: Acute (2) Abdominal pain Current Visit: Yes Status: Acute (3) Acute kidney injury Current Visit: Yes Status: Acute (4) Malignant hypertension Current Visit: Yes Status: Acute (5) B12 deficiency Current Visit: Yes Status: Acute (6) Iron deficiency Current Visit: Yes Status: Acute (7) HTN (hypertension) Onset Date: 08/18/17 Current Visit: No Status: Acute Qualifiers: Hypertension type: essential hypertension Qualified Code(s): I10 - Essential (primary) hypertension (8) Hiatal hernia with GERD Current Visit: No Status: Chronic - Plan Plan: 1. Gentle hydration 2. Anti emetics 3. Pain control 4. Carotid Doppler and echocardiogram 5. CT of the brain 6. Monitor renal function closely 7. GI consultation 8. Possible EGD 9. GI and DVT prophylaxis Discharge Plan: Home Plan to discharge in: Greater than 2 days - Advance Directives Does patient have a Living Will: Yes Does patient have a Durable POA for Healthcare: Yes - Code Status/Comfort Care Code Status Assessed: Yes Code Status: Full Code Critical Care: No Time Spent Managing PTS Care (In Minutes): 45
--- NOTE | 2021-03-15 08:17 | P.PN ---
Subjective Date of Service: 03/14/21 Patient feeling a little bit better today. Not as much nausea. Tolerating liquid diet. Seen by GI and plan to do EGD in a.m.. Abdominal ultrasound pending. Carotid Doppler and echocardiogram pending as well. CT of the brain with mild atrophy and chronic ischemic changes. EKG normal sinus rhythm. Patie nt with B12 and iron deficiency. Patient with anemia with leukocytosis. Will go ahead and monitor this going forward. May get a referral to Hematology as an outpatient. Review of Systems 10-point ROS is otherwise unremarkable Physical Examination - Vital Signs Temperature: 97.6 F Blood Pressure: 148/60 Pulse: 58 Respirations: 18 Pulse Ox (%): 94 - Physical Exam General: Alert, In no apparent distress, Oriented x3 HEENT: Atraumatic, PERRLA, EOMI Neck: Supple, JVD not distended Respiratory: Clear to auscultation bilaterally, Normal air movement Cardiovascular: Regular rate/rhythm, Normal S1 S2 Gastrointestinal: Hypoactive, Tenderness Musculoskeletal: No clubbing, No swelling, No tenderness Integumentary: No rashes Neurological: Normal speech, Normal tone, Normal affect Lymphatics: No axilla or inguinal lymphadenopathy - Studies Laboratory Data (last 24 hrs) 03/15/21 05:38: Troponin I < 0.02 03/14/21 11:10: Sodium 143, Potassium 4.0, BUN 23 H, Creatinine 1.51 H, Glucose 103 03/14/21 11:10: WBC 12.10 H D, Hgb 9.5 L, Hct 30.4 L, Plt Count 246 Medications List Reviewed: Yes Assessment & Plan - Problems (Diagnosis) (1) Intractable nausea and vomiting Current Visit: Yes Status: Acute (2) Abdominal pain Current Visit: Yes Status: Acute (3) Acute kidney injury Current Visit: Yes Status: Acute (4) Malignant hypertension Current Visit: Yes Status: Acute (5) B12 deficiency Current Visit: Yes Status: Acute (6) Iron deficiency Current Visit: Yes Status: Acute (7) HTN (hypertension) Onset Date: 08/18/17 Current Visit: No Status: Acute Qualifiers: Hypertension type: essential hypertension Qualified Code(s): I10 - Essential (primary) hypertension (8) Hiatal hernia with GERD Current Visit: No Status: Chronic - Plan Plan: 1. Continue with Gentle hydration 2. Continue with Anti emetics 3. Added hydralazine and Cozaar to blood pressure medications; outpatient nephrology follow-up 4. Carotid Doppler and echocardiogram pending 5. CT of the brain with mild atrophy; chronic ischemic changes 6. Monitor renal function closely; renal ultrasound pending 7. GI consultation appreciated 8. EGD in a.m. 9. GI and DVT prophylaxis Discharge Plan: Home Plan to discharge in: Greater than 2 days - Advance Directives Does patient have a Living Will: Yes Does patient have a Durable POA for Healthcare: Yes - Code Status/Comfort Care Code Status: Full Code Critical Care: No Time Spent Managing PTS Care (In Minutes): 35
--- NOTE | 2021-03-15 08:24 | ECHO ---
HEIGHT: 5 ft 4 in WEIGHT: 219 lb 8 oz DATE OF STUDY: 03/14/[address]: Bassem Das MD 2-DIMENSIONAL: YES M.MODE: YES DOPPLER: YES COLOR FLOW: YES TDS: NO PORTABLE: NO DEFINITY: NO BUBBLE STUDY: NO DIAGNOSIS: SYNCOPE CARDIAC HISTORY: CATHERIZATION: NO SURGERY: NO PROSTHETIC VALVE: NO PACEMAKER: NO MEASUREMENTS (cm) DIASTOLIC (NORMALS) SYSTOLIC (NORMALS) IVSd 1.3 (0.6-1.2) LA Diam 2.8 (1.9-4.0) LVEF 55% LVIDd 3.2 (3.5-5.7) LVIDs 2.3 (2.0-3.5) %FS 28% LVPWd 1.2 (0.6-1.2) Ao Diam 2.7 (2.0-3.7) 2 DIMENSIONAL ASSESSMENT: RIGHT ATRIUM: NORMAL LEFT ATRIUM: NORMAL RIGHT VENTRICLE: NORMAL LEFT VENTRICLE: NORMAL TRICUSPID VALVE: NORMAL MITRAL VALVE: NORMAL PULMONIC VALVE: NORMAL AORTIC VALVE: NORMAL PERICARDIAL EFFUSION: NONE AORTIC ROOT: NORMAL LEFT VENTRICULAR WALL MOTION: NORMAL DOPPLER/COLOR FLOW: NORMAL COMMENTS: NORMAL 2D ECHOCARDIOGRAM WITH DOPPLER. NO WALL MOTION ABNORMALITY. NO EFFUSION. TECHNOLOGIST: Olga DUNN
[2021-03-15] MEDS: AMLODIPINE 10 MG TAB PO SCH ×2 (09:00→14:10)
[2021-03-15] MEDS: ENOXAPARIN 30 MG/0.3 ML SQ SCH (09:00)
[2021-03-15] MEDS: HYDRALAZINE HCL 10 MG TABLET PO SCH ×3 (09:00→21:10)
[2021-03-15] MEDS: LOSARTAN POTASSIUM 50 MG TABLET PO SCH ×3 (09:00→21:11)
[2021-03-15] MEDS: SOD FERRIC GLUC COMPLX/SUCROSE 125 MG in NA CHLORIDE 0.9% 100 ML IV SCH (09:51)
[2021-03-15] MEDS ORDERED: Ringers Lactate 1,000 ML IV ONE (12:14)
[2021-03-15] MEDS ORDERED: propofoL 200 MG/20 ML VIAL IV ONE (13:31)
[2021-03-15] MEDS ORDERED: LIDOCAINE 1% MPF 30 ML VIAL ONE (13:31)
--- NOTE | 2021-03-15 13:42 | ENDO RPT ---
[address], [address] EGD PROCEDURE REPORT EXAM DATE: 03/15/2021 PATIENT NAME: Hari Hernandez MR#: [id number] BIRTHDATE: 1935 ATTENDING: [address] STATUS: inpatient - [facility] GLASS INSPECTOR: Citlaly Jimenez RN and Isela Copeland INDICATIONS: The patient is a 85 yr old Female here for an EGD due to nausea and vomiting and iron deficiency anemia PROCEDURE PERFORMED: EGD with biopsy MEDICATIONS: Per Anesthesia. TOPICAL ANESTHETIC: none CONSENT: The patient understands the risks and benefits of the procedure and understands that these risks include, but are not limited to: sedation, allergic reaction, infection, perforation and/or bleeding. Alternative means of evaluation and treatment include, among others: physical exam, x-rays, and/or surgical intervention. The patient elects to proceed with this endoscopic procedure. DESCRIPTION OF PROCEDURE: During intra-op preparation period all mechanical medical equipment was checked for proper function. Hand hygiene and appropriate measures for infection prevention was taken. Procedure, possible complications, and alternatives including but not limited to the possibility of bleeding, perforation, tear, infection, sepsis, need for surgery, need for blood transfusion, and anesthesia related complications were explained to the patient. After the risks, benefits and alternatives of the procedure were thoroughly explained, Informed consent was verified, confirmed and timeout was successfully executed by the treatment team. The patient was placed in the left lateral position. The patient was anesthetized with topical anesthesia. Through the anesthetized oropharyngeal area, the scope was passed without any difficulty. The EG-[id number] ([id number]) endoscope was introduced through the mouth and advanced to the third portion of the duodenum. Retroflexed views revealed a large hiatal hernia. The gastroscope was then slowly withdrawn and removed. LA Class C esophagitis was found in the lower esophagus. 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 With jumbo forceps, a biopsy was obtained and sent to pathology. A large hiatal hernia was found. Moderate amount of solid food retained in the large hiatal hernia. Gastric biopsies obtained. Small bowel biopsies obtained with history of iron deficiency anemia. ADVERSE EVENTS: There were no complications. IMPRESSIONS: 1. LA class C esophagitis in the lower esophagus 2. Possible Oliva's esophagus in the lower esophagus 3. Large hiatal hernia 4. Moderate amount of solid food retained in the large hiatal hernia 5. Gastric biopsies obtained 6. Small bowel biopsies obtained with history of iron deficiency anemia RECOMMENDATIONS: REPEAT EXAM: Peña [address] Dr eSigned: Peña Harris Dr 03/15/2021 1:42 PM cc: CPT CODES: ICD9 CODES: PATIENT NAME: David Changrosana Hernadez MR#: [id number]
--- NOTE | 2021-03-15 13:46 | ENDO RPT ---
[address], [address] EGD PROCEDURE REPORT EXAM DATE: 03/15/2021 PATIENT NAME: Hari Hernandez MR#: [id number] BIRTHDATE: 1935 ATTENDING: Peña [address] Dr STATUS: inpatient - [facility] GAS REVERSER: Citlaly Jimenez RN and Isela Copeland INDICATIONS: The patient is a 85 yr old Female here for an EGD due to nausea and vomiting and iron deficiency anemia PROCEDURE PERFORMED: EGD with biopsy MEDICATIONS: Per Anesthesia. TOPICAL ANESTHETIC: none CONSENT: The patient understands the risks and benefits of the procedure and understands that these risks include, but are not limited to: sedation, allergic reaction, infection, perforation and/or bleeding. Alternative means of evaluation and treatment include, among others: physical exam, x-rays, and/or surgical intervention. The patient elects to proceed with this endoscopic procedure. DESCRIPTION OF PROCEDURE: During intra-op preparation period all mechanical medical equipment was checked for proper function. Hand hygiene and appropriate measures for infection prevention was taken. Procedure, possible complications, and alternatives including but not limited to the possibility of bleeding, perforation, tear, infection, sepsis, need for surgery, need for blood transfusion, and anesthesia related complications were explained to the patient. After the risks, benefits and alternatives of the procedure were thoroughly explained, Informed consent was verified, confirmed and timeout was successfully executed by the treatment team. The patient was placed in the left lateral position. The patient was anesthetized with topical anesthesia. Through the anesthetized oropharyngeal area, the scope was passed without any difficulty. The EG-[id number] ([id number]) endoscope was introduced through the mouth and advanced to the third portion of the duodenum. Retroflexed views revealed a large hiatal hernia. The gastroscope was then slowly withdrawn and removed. LA Class C esophagitis was found in the lower esophagus. 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 With jumbo forceps, a biopsy was obtained and sent to pathology. A large hiatal hernia was found. Moderate amount of solid food retained in the large hiatal hernia. Gastric biopsies obtained. Small bowel biopsies obtained with history of iron deficiency anemia. ADVERSE EVENTS: There were no complications. IMPRESSIONS: 1. LA class C esophagitis in the lower esophagus 2. Possible Oliva's esophagus in the lower esophagus 3. Large hiatal hernia 4. Moderate amount of solid food retained in the large hiatal hernia 5. Gastric biopsies obtained 6. Small bowel biopsies obtained with history of iron deficiency anemia RECOMMENDATIONS: 1. await biopsy results 2. acid suppression therapy 3. gastric emptying study REPEAT EXAM: Peña [address] Dr eSigned: Peña Har[address] Dr 03/15/2021 1:46 PM Revised: 03/15/2021 1:46 PM cc: Bassem Das CPT CODES: ICD9 CODES: PATIENT NAME: Hari Hernandez MR#: [id number]
[2021-03-16] MEDS: PANTOPRAZOLE 40MG TABLET PO SCH (05:29)
[2021-03-16] MEDS: LOSARTAN POTASSIUM 50 MG TABLET PO SCH (08:30)
[2021-03-16] MEDS: HYDRALAZINE HCL 10 MG TABLET PO SCH (08:31)
[2021-03-16] MEDS: AMLODIPINE 10 MG TAB PO SCH (08:31)
[2021-03-16] MEDS: ENOXAPARIN 30 MG/0.3 ML SQ SCH (08:31)
[2021-03-16 09:02] VITALS: BP 172/71; TEMP 97
[2021-03-16 10:49] VITALS: O2SAT 97
--- NOTE | 2021-03-16 11:42 | RAD REPORT ---
EXAM DESCRIPTION: NM - Gastric Emptying Study - 03/16/2021 11:17 am CLINICAL HISTORY: Abdominal pain/ intractable nausea COMPARISON: None. TECHNIQUE: The patient was administered approximately 1 mCi Tc 99m sulfur colloid in solid egg meal. Imaging of the left upper quadrant was performed with time/activity curve generated. FINDINGS: The half-time gastric emptying equals 36 minutes Normal value(45 minutes to 110 minutes ) Lag phase duration 5 minutes Retention at 120 minutes = 11% IMPRESSION: Rapid gastric emptying
--- NOTE | 2021-03-16 17:23 | P.PN ---
Date of Service: 03/15/21 Subjective Patient continues to improve with no new complaints. Multiple diagnostic studies are pending. Anticipate discharge home after EGD. Review of Systems 10-point ROS is otherwise unremarkable Physical Examination - Vital Signs Reviewed - Physical Exam General: Alert, In no apparent distress, Oriented x3 Respiratory: Clear to auscultation bilaterally, Normal air movement Cardiovascular: Regular rate/rhythm, Normal S1 S2 Gastrointestinal: Hypoactive, Tenderness Musculoskeletal: No clubbing, No swelling, No tenderness Integumentary: No rashes Neurological: Normal speech, Normal tone, Normal affect Assessment & Plan - Problems (Diagnosis) (1) Intractable nausea and vomiting Current Visit: Yes Status: Acute (2) Abdominal pain Current Visit: Yes Status: Acute (3) Acute kidney injury Current Visit: Yes Status: Acute (4) Malignant hypertension Current Visit: Yes Status: Acute (5) B12 deficiency Current Visit: Yes Status: Acute (6) Iron deficiency Current Visit: Yes Status: Acute (7) HTN (hypertension) Onset Date: 08/18/17 Current Visit: No Status: Acute Qualifiers: Hypertension type: essential hypertension Qualified Code(s): I10 - Essential (primary) hypertension (8) Hiatal hernia with GERD Current Visit: No Status: Chronic - Plan Plan: Continue with plan of care as mentioned below 1. Continue with Gentle hydration 2. Continue with Anti emetics 3. Added hydralazine and Cozaar to blood pressure medications; outpatient nephrology follow-up 4. Carotid Doppler and echocardiogram with no significant abnormalities 5. CT of the brain with mild atrophy; chronic ischemic changes 6. Monitor renal function closely; renal ultrasound pending 7. GI consultation appreciated 8. EGD pending today 9. GI and DVT prophylaxis
--- NOTE | 2021-03-16 17:25 | P.DS ---
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 She does have the occasional vomiting. She has been taking omeprazole at home with little relief. Symptoms have gotten gradually worse. She also had an episode were she got lightheaded and fell. Unsure if she completely passed out as there was no one with her at the independent living that she lives then. She is a resident at [facility] and and she is been living in independent living for a long time. However, according to her son she has been declining and she is also being getting forgetful. Her blood pressure has been significantly elevated over the last few weeks. Her systolic blood pressure stays in the 180-190s and her diastolic is in the 90-100s. She does take amlodipine. However, it apparently is not helping her blood pressure remained controlled. She was admitted and labs have not shown anything substantially unremarkable except for B12 deficiency and acute renal insufficiency. Patient will be given gentle hydration. Will monitor additional labs including iron studies that she is slightly anemic. She will probably have to follow up with Nephrology at discharge. Renal ultrasound is pending. Hospital Course: Diagnostic studies revealed that patient had a large hiatal hernia. Patient had who that was being caught up in the esophagus. Questionable stenosis but the EGD did not reveal any other abnormality except for the Oliva's esophagus as well. Patient had a gastric emptying study that was unremarkable. CT of the brain negative. Echocardiogram and carotid Doppler no significant abnormality. Patient does need repeat labs in 6 months to monitor CBC and renal function. Outpatient nephrology and gastroenterology follow-up. Vital Signs/Physical Exam: Temp Pulse Resp BP Pulse Ox 97.0 F 64 18 172/71 H 97 03/16/21 08:00 03/16/21 08:00 03/16/21 08:00 03/16/21 08:00 03/16/21 08:00 General: Alert, In no apparent distress, Oriented x3 Laboratory Data at Discharge: WBC 12.10 K/uL (4.3-10.9) H D 03/14/21 11:10 Hgb 9.5 g/dL (12.0-15.0) L 03/14/21 11:10 Hct 30.4 % (36.0-45.0) L 03/14/21 11:10 Plt Count 246 K/uL (152-406) 03/14/21 11:10 Sodium 143 mmol/L (136-145) 03/14/21 11:10 Potassium 4.0 mmol/L (3.5-5.1) 03/14/21 11:10 BUN 23 mg/dL (7-18) H 03/14/21 11:10 Creatinine 1.51 mg/dL (0.55-1.3) H 03/14/21 11:10 Glucose 103 mg/dL (74-106) 03/14/21 11:10 Phosphorus 2.4 mg/dL (2.5-4.9) L 03/13/21 21:43 Magnesium 2.0 mg/dL (1.8-2.4) 03/14/21 05:38 Total Bilirubin 0.4 mg/dL (0.2-1.0) 03/13/21 21:43 AST 13 U/L (15-37) L 03/13/21 21:43 ALT 16 U/L (12-78) 03/13/21 21:43 Alkaline Phosphatase 88 U/L (45-117) 03/13/21 21:43 Troponin I < 0.02 ng/mL (0.0-0.045) 03/16/21 05:59 Triglycerides 133 mg/dL (<150) 03/14/21 05:38 Cholesterol 174 mg/dL (<200) 03/14/21 05:38 HDL Cholesterol 45 mg/dL (40-60) 03/14/21 05:38 Cholesterol/HDL Ratio 3.87 03/14/21 05:38 Home Medications: Amlodipine [Norvasc*] 10 mg PO DAILY 03/13/21 Omeprazole [Prilosec] 40 mg PO DAILY 03/13/21 Sertraline HCl 50 mg PO DAILY 03/13/21 Cyanocobalamin/Cobamamide [Vitamin B-12 5,000 Mcg Tab Sl] 1 each SL DAILY #30 tab.subl 03/15/21 Ferrous Sulfate [Ferrous Sulfate Elixir] 5 ml PO BID #500 ml 03/15/21 Hydralazine [Apresoline*] 10 mg PO TID #90 tab 03/15/21 Losartan Potassium [Cozaar*] 50 mg PO BID #60 tablet 03/15/21 New Medications: Hydralazine [Apresoline*] 10 mg PO TID #90 tab Losartan Potassium [Cozaar*] 50 mg PO BID #60 tablet Ferrous Sulfate [Ferrous Sulfate Elixir] 5 ml PO BID #500 ml Cyanocobalamin/Cobamamide [Vitamin B-12 5,000 Mcg Tab Sl] 1 each SL DAILY #30 tab.subl Diet: AHA Activity: Fall precautions Time spent managing pt's care (in minutes): 35
== END 2021-03-16 13:19 | disposition home or self-care (01) | DRG 392 ==
LOC: 2ND 20:52
PROVIDERS: ADMIT Hospitalist; ATTEND Hospitalist
PROC: 0DB88ZX Excision of Small Intestine, Via Natural or Artificial Opening Endoscopic, Diagnostic (ICD-10-PCS; 2021-03-15)
PROC: 0DB78ZX Excision of Stomach, Pylorus, Via Natural or Artificial Opening Endoscopic, Diagnostic (ICD-10-PCS; 2021-03-15)
PROC: 0DB38ZX Excision of Lower Esophagus, Via Natural or Artificial Opening Endoscopic, Diagnostic (ICD-10-PCS; principal; 2021-03-15 12:00)
DX: K44.9 Diaphragmatic hernia without obstruction or gangrene (principal); N17.9 Acute kidney failure, unspecified; K20.90 Esophagitis, unspecified without bleeding; I10 Essential (primary) hypertension; D64.9 Anemia, unspecified; E53.8 Deficiency of other specified B group vitamins; K21.9 Gastro-esophageal reflux disease without esophagitis; D72.829 Elevated white blood cell count, unspecified; E61.1 Iron deficiency; Z88.5 Allergy status to narcotic agent; Z88.0 Allergy status to penicillin; Z88.8 Allergy status to other drugs, medicaments and biological substances; Z79.899 Other long term (current) drug therapy; Z90.49 Acquired absence of other specified parts of digestive tract; Z96.653 Presence of artificial knee joint, bilateral; Z20.822 Contact with and (suspected) exposure to COVID-19
CPT/HCPCS: 36415; 70450; 71045; 76700; 78264; 80048; 80053; 80061; 81003; 81015; 82533; 82607; 82728; 82746; 83036; 83540; 83615; 83735; 83880; 84100; 84439; 84443; 84484; 85025; 85044; 87086; 87088; 88305; 88312; 88313; 93005; 93306; 93880; A9541; J1650; J2704; J2916; J3420; J7030; J7120; U0003